=== PATIENT | female | born 1945 | race Hispanic/Latino ===

== ENCOUNTER 2017-07-23 06:03 | Day surgery (SDC) | payer OTHER ==
[2017-07-22 11:09] LABS: Absolute Lymphocytes (CBC) 1.5 K/uL (0.7-4.9); Absolute Monocytes 0.7 K/uL (0.1-1.3); Absolute Neutrophil 3.6 K/uL (1.8-8.0); Basophils % 0.6 % (0-1.3); Eosinophils % 3.2 % (0-4.4); Hematocrit 42.2 % (36.0-45.0); Lymphocytes % 24.6 % (15.3-44.8); MCH 29.5 pg (27.0-35.0); MCV 88.5 fL (80-100); MPV 9.2 fL (7.6-11.3); Monocytes % 11.3 % (3.3-12.3); RBC Red Blood Cell Count 4.77 M/uL (3.86-4.86)
[2017-07-22 11:26] LABS: Potassium 3.9 mEq/L (3.6-5.0)
[2017-07-23] MEDS ORDERED: Ringers Lactate 1,000 ML IV ONE ×2 (06:46→10:56)
[2017-07-23] MEDS ORDERED: SCOPOLAMINE HYDROBROMIDE PATCH TD ONE (06:48)
[2017-07-23] MEDS ORDERED: LIDOCAINE 2% MPF 5 ML VIAL ONE (08:16)
[2017-07-23] MEDS ORDERED: PROPOFOL 200 MG/20 ML VIAL IV ONE (08:16)
[2017-07-23] MEDS ORDERED: FENTANYL CITR 250 MCG/5 ML ONE (08:16)
[2017-07-23] MEDS ORDERED: DEXAMETHASONE 10 MG/ML VIAL ONE (08:16)
[2017-07-23] MEDS ORDERED: ROCURONIUM 50 MG/5 ML VIAL IV ONE (08:16)
[2017-07-23] MEDS ORDERED: MIDAZOLAM HCL 2 MG/2 ML INJ ONE (08:17)
[2017-07-23] MEDS ORDERED: ONDANSETRON 4 MG/2 ML VIAL ONE ×3 (08:17→15:19)
[2017-07-23] MEDS: CEFAZOLIN/SWI 1gm 1 GM/10 ML SYR ONE ×3 (08:53→09:20)
[2017-07-23] MEDS: NA CHLORIDE 0.9% 1,000 ML ONE ×3 (08:53→09:13)
[2017-07-23] MEDS ORDERED: EPHEDRINE SULF 50 MG/5 ML SYR ONE (09:42)
[2017-07-23] MEDS ORDERED: FENTANYL CITR 100 MCG/2 ML ONE (11:09)
[2017-07-23] MEDS ORDERED: KETOROLAC 30 MG/ML INJ ONE (12:02)
[2017-07-23] MEDS ORDERED: CEFAZOLIN/SWI 1gm 1 GM/10 ML SYR ONE (12:13)
[2017-07-23] MEDS ORDERED: MORPHINE 10 MG/ML VIAL ONE (12:21)
[2017-07-23] MEDS ORDERED: Mastisol Adhesive Liq ONE (12:27)
[2017-07-23] MEDS: PROMETHAZINE 25 MG/ML VIAL ONE ×2 (14:15→15:20)
[2017-07-23] MEDS ORDERED: METOCLOPRAMIDE 10 MG/2mL INJ ONE (15:34)
--- NOTE | 2017-07-27 02:43 | OP ---
Date of Procedure: 07/23/2017 Surgeon: Isa Ramsey MD Anesthesiologist: Riana Keller. Preoperative Diagnoses: Postmenopausal bleeding, left adnexal mass, recent diagnosis of breast cance r 4 months ago. Postoperative Diagnoses: Postmenopausal bleeding, left adnexal mass, recent diagnosis of breast canc er 4 months ago. Left large complex ovarian mass, left hydrosalpinx, omental implant x1 and round li gament implant x1. Frozen section on the omental lesion was negative for malignancy. Procedures Performed: 1.Total laparoscopic hysterectomy and bilateral salpingo-oophorectomy. 2.Pelvic washings. 3.Biopsies of the right round ligament and omental lesions. 4.Cystoscopy. 5.Lysis of sigmoid and omental adhesions before the start of the case. Anesthesia: General endotracheal. Estimated Blood Loss: Minimal. Complications: No complications. Drains: No drains. Condition: Stable. Findings: There were omental adhesions from below the umbilicus all the way to the level of the area above the bladder. Then there were adhesions of the omentum to the right adnexa. There were small bowel adhesions to the right lower quadrant and into the pelvic area just underneath the brim of the pelvis and there were sigmoid adhesions to the infundibulopelvic ligament, to the distal part of the tube, and to the lateral wall, inferior and medial to the lateral attachment of the colon. There was one omental lesion that appeared whitish, less than a half centimeter on the inferior part of the om entum. This was picked up and entirely resected all around and a 3-0 Vicryl suture placed to close t he window in the omentum to prevent any potential bowel obstruction. There was a lesion on the right round ligament, about 5 cm from the uterine attachment. This was also excised completely with a wid e margin. At the end of the surgery, both tubes and ovaries were completely removed including all th e paraovarian and paratubal tissues leaving a clean pedicle of the infundibulopelvic ligament alone w ithout any residual tissue. No evidence of any other endometriotic implants. Indications: The patient is a 72-year-old with postmenopausal bleeding, who had endometrial curettag e about 4 months ago which did not show any EIN or EAC, so she then had a diagnosis of breast cancer. She refused chemotherapy, was going to get radiation starting in July. Her CT scan was done for her cancer and this showed an adnexal mass that was 3.5 cm on the left side and calcified appearing lesi on, which appeared to be a fibroid that was contiguous to the uterus, likely subserosal. There was no evidence of any free fluid or lymphadenopathy or hepatic lesions. The patient was referred from the oncologist for the findings on the CT. She was counseled on her op tions. She still had ongoing bleeding in an intermittent fashion that had not stopped since I did bi opsy. So, given the fact that she had ongoing postmenopausal bleeding despite a negative endometrial sampling procedure, we discussed about the possibility of metastatic breast cancer or a second prima ry like an ovarian lesion or a small chance that this could be leiomyosarcoma. All these were discus sed with the patient and the patient was consented and then taken to the OR, discussed with radiation oncologist and the medical oncologist about timing and once this was clarified to be not interfering with any of the timings of the other treatment options, proceed with surgery. Procedure In Detail: Informed consent was verified. The patient was brought to the OR. She was topher macho in a supine fashion on the operating table. After general anesthesia was given, she was placed i n dorsal lithotomy position. Pelvic exam performed. Uterus anteflexed, difficult examination, howev er, left adnexal mass palpated, which was presumed to be a fibroid and an ovarian mass. Intact abdomen, vulva, vagina, and perineum were prepped and draped in a sterile fashion. Reddy was placed to drain the bladder and VCare was fixed in place. This area was draped. A 1-cm supraumbilic al incision was made with a scalpel about 1.5 actually on the skin. Fascia was dissected, opened up by incising with a scalpel, tagged on both sides with 0 Vicryl sutures. The peritoneum appeared into the cavity bluntly with a finger. Then S retractors placed. Scope placed. Site of entry checked. No evidence of any trauma. Liver and gallbladder inspected. No evidence of any abnormalities on th e surface. The entire peritoneum lining and diaphragm were inspected as well as the omentum. There was a tiny omental whitish lesion near the distal most part. Once this was noted, then the adhesions that were present on the anterior aspect attached to the anterior abdominal wall, were seen all the way to the level of the bladder. So, a 5-mm left lower quadrant port was placed. Then, curved tip L igaSure was used 5 mm to take down the bowel adhesions with sharp dissection with the scissors of the LigaSure and then with the bipolar cautery along with the cutting. Once this was systematically wit h push-spread technique , window was created and taken down. Then, the patient was placed i nto Trendelenburg. A 10 mm suprapubic, 5 mm right lower quadrant ports were all placed under direct vision. Then, the uterus was elevated. Thorough pelvic washings were performed. The left adnexal m ass was palpable. Uterus was small and it was not attached to the left adnexal masses. This mass ap peared to be complex. Pelvic washings were done. The plan was made to remove the omental lesion if this was positive. Then that probably meant that this would be metastatic ovarian cancer. This lesi on was excised completely while making windows in the omentum and excising it widely. Then, a 2-0 Vi cryl on an SH needle was used to close the window in a [id number] fashion. Once this was done, omental lesion was sent for frozen section. This appeared to be fibrotic connect christina tissue. No evidence of any malignant cells. She did have epithelial compartment component as well but no cancer. We came back into the OR. This could be a metastatic breast lesion or a benign calcified lesion that had been preexisting. The diagnosis of ovarian cancer was also contemplated. However, since the pa tient was there with ports placed and the adnexal mass completely free and unattached to other struct ures excepting the tubal attachment to the left sigmoid, plan was to proceed with the surgery. So, the sigmoid colon adhesions were taken down in a systematic fashion with push-spread technique ta james down the adhesions all the way from the lateral wall to the IP ligament and then to the distal p art of the tube. Window was made and the bipolar cautery was used to cut. The peritoneum on the med ial and lateral sides of the IP ligament were incised. The peritoneal dissection was carried to the round ligament on the left side. Then, the peritoneal window was made on the medial aspect as well a fter identifying the course of the ureter and the pelvis from the pelvic brim where it crossed over t he iliac vessels. Then through this window, the bipolar was inserted and the IP ligament was cauteri zed and cut on the distal part of the tube. All these were dissected medially while doing the latera l dissection and all these were taken down along the mesosalpinx to the level of the proximal end of the tube at the uterus. The tube was cauterized and cut and removed. The specimen was left and the specimen was placed into the bag through the 10 port. The utero-ovarian ligament was taken down and the entire ovary was removed along with the tube as well. Once this was placed in a bag and complete ly cinched tight, it was left in the left lower quadrant and tie was held outside through the right p ort at the skin. Port was replaced and the hysterectomy started. The round ligament was opened up, cauterized, and cut completely. Anterior bladder flap was raised from the left side over the bladder to the right side and the posterior leaf was reached through the left uterosacral ligament. Similar dissection was performed on the opposite side taking down the mesosalpinx and the entire out. This tube was cauterized and cut and removed through the 10 port. Ovary was left in place. Utero-ovarian ligament, round ligament, anterior broad ligament, and posterior broad ligament were all taken down systematically. All the vessels were cauterized and cut to skeletonize the uterine vessels. Then, a nterior bladder flap was opened up. The vesicovaginal space was entered and the bladder pushed infer iorly. Laterally, the vessels on the right side were taken down the cardinal ligament. Similar diss ection on the left side wit circumferential colpotomy with a monopolar hook blade. Specimen pulled o ut through the uterus. Right side of the ovary was still intact. This was taken down actively and c arefully dissecting this lateral to the ureter and superior. Once the entire ovary was taken down by cutting and cauterizing the IP ligament, the specimen was pulled out through the 10 port. We then p roceeded with hysterectomy. Posteriorly, the broad ligament was taken down to the right uterosacral on the superficial after the surgical colpotomy was done, the bag was pulled out through the vagina, keeping specimen completely i ntact without rupture. Then, PDS sutures were taken and the cuff closed with 2 single sutures on bot h ends and 3 [id number] in the middle. Excellent support. No evidence of any residual uterine , ovarian, or cervical tissues. The entire pelvic cavity was surveyed, thoroughly irrigated, and suc tioned with normal saline at least one liter. Then, the patient was placed in a reverse Trendelenbur g and all the fluid sucked out as well. The omentum was inspected and was normal. The sigmoid was then inspected. There was no evidence of any trauma. However, there was lot of diverticulosis. All the trocars were removed. Fascia closed at the umbilicus with a cnbugr-ae-smdln 0 Vicryl and sim ple 0 Vicryl at the suprapubic site. All skin incisions closed with the help of 4-0 Monocryl interru pted sutures. Cystoscopy was performed after removing the Reddy and a 17-Khmer sheath, 30-degree le ns and normal saline were used. Both ureteric orifices had strong jets of urine from and no evidence of any trauma. The scope was pulled out and the bladder was drained. The patient was recovered fro m anesthesia and taken to PACU in stable condition. EBL minimal. Instrument, needle, and sponge cou nts were done and they were correct at the end of the case. ROSA/ADARSH Voice ID: [id number] Report ID: [id number]
== END 2017-07-23 16:30 | disposition home or self-care (01) ==
LOC: OR 06:03
PROVIDERS: ATTEND Obstetrics & Gynecology
PROC: 0UT24ZZ Resection of Bilateral Ovaries, Percutaneous Endoscopic Approach (ICD-10-PCS; 2017-07-23)
PROC: 0UT74ZZ Resection of Bilateral Fallopian Tubes, Percutaneous Endoscopic Approach (ICD-10-PCS; 2017-07-23)
PROC: 0DBU4ZX Excision of Omentum, Percutaneous Endoscopic Approach, Diagnostic (ICD-10-PCS; 2017-07-23)
PROC: 0UT94ZZ Resection of Uterus, Percutaneous Endoscopic Approach (ICD-10-PCS; principal; 2017-07-23 08:00)
DX: N85.02 Endometrial intraepithelial neoplasia [EIN] (principal); D27.1 Benign neoplasm of left ovary; D25.9 Leiomyoma of uterus, unspecified; N70.11 Chronic salpingitis; N94.89 Other specified conditions associated with female genital organs and menstrual cycle; N83.8 Other noninflammatory disorders of ovary, fallopian tube and broad ligament; K66.0 Peritoneal adhesions (postprocedural) (postinfection); C50.912 Malignant neoplasm of unspecified site of left female breast; I10 Essential (primary) hypertension; Z82.49 Family history of ischemic heart disease and other diseases of the circulatory system; Z83.3 Family history of diabetes mellitus
CPT/HCPCS: 36415; 49321; 58571; 80048; 85025; 86850; 86900; 86901; 88108; 88305 ×3; 88307; 88331; 88333; J0690 ×2; J1100; J2250; J2405 ×2; J2550; J2765; J3010; J7030

== ENCOUNTER 2017-10-03 00:40 | Emergency (ER) | payer OTHER ==
[2017-10-03] MEDS ORDERED: MECLIZINE HCL 12.5 MG TAB ONE (01:16)
[2017-10-03] MEDS ORDERED: cloNIDine HCl 0.1 MG TAB ONE (01:16)
[2017-10-03 01:29] LABS: Absolute Lymphocytes (CBC) 0.8 K/uL (0.7-4.9); Absolute Monocytes 0.6 K/uL (0.1-1.3); Basophils % 1.1 % (0-1.3); Eosinophils % 3.7 % (0-4.4); Hematocrit 40.7 % (36.0-45.0); MCH 29.8 pg (27.0-35.0); MPV 8.6 fL (7.6-11.3); Monocytes % 10.7 % (3.3-12.3); RBC Red Blood Cell Count 4.68 M/uL (3.86-4.86)
[2017-10-03 01:36] LABS: Protime INR 0.98
[2017-10-03 01:49] LABS: Albumin 3.8 g/dL (3.4-5.0); Bilirubin Direct 0.1 mg/dL (0-0.2); Bilirubin Total 0.4 mg/dL (0.2-1.0); CKMB Creatine Kinase MB 1.2 ng/mL (0.3-3.6); Magnesium 2.1 mg/dL (1.8-2.4); Potassium 3.8 mmol/L (3.5-5.1); Protein, Total 8.3 g/dL (6.4-8.2)
--- NOTE | 2017-10-03 03:06 | ER ---
Nurse's Notes [facility] Name: Cassy Stafford Age: 72 yrs Sex: Female : 1945 Arrival Date: 10/03/2017 Time: 00:42 Bed 8 Private MD: Megan Alfonso C Diagnosis: Benign paroxysmal vertigo, bilateral Presentation: 10/03 00:57 Presenting complaint: Patient states: Reports dizziness when lying down, causes nausea tl2 and vomiting. Started tonight. Transition of care: patient was not received from another setting of care. Onset of symptoms was October 02, 2017 at 22:00. Risk Assessment: Do you want to hurt yourself or someone else? Patient reports no desire to harm self or others. Initial Sepsis Screen: Does the patient meet any 2 criteria? No. Patient's initial sepsis screen is negative. Does the patient have a suspected source of infection? No. Patient's initial sepsis screen is negative. Care prior to arrival: None. 00:57 Method Of Arrival: Ambulatory tl2 00:57 Acuity: ONEIL 3 tl2 Triage Assessment: 00:59 General: Appears in no apparent distress. uncomfortable, Behavior is calm, cooperative, tl2 appropriate for age. Pain: Denies pain. Neuro: Level of Consciousness is awake, alert, obeys commands, Oriented to person, place, time, situation, Reverberatory Furnace Operator are equal bilaterally Moves all extremities. Speech is normal, Facial symmetry appears normal, Reports dizziness, since 2200. Cardiovascular: Denies chest pain. Respiratory: Airway is patent Respiratory effort is even, unlabored, Respiratory pattern is regular, symmetrical. GI: Reports nausea, vomiting. : No signs and/or symptoms were reported regarding the genitourinary system. Derm: Skin is pink, warm \T\ dry. Musculoskeletal: No signs and/or symptoms reported regarding the musculoskeletal system. Historical: - Allergies: 00:59 No Known Allergies; tl2 - Home Meds: 01:01 anastrozole 1 mg oral tab 1 tab once daily [Active]; fluoxetine 20 mg Oral tab 1 tab bb once daily [Active]; carvedilol 6.25 mg oral tab 1 tab 2 times per day [Active]; alendronate 35 mg oral tab 1 tab once wkly [Active]; calcium vit D 1200mg/1000 IU [Active]; cranberry 4200 mg oral [Active]; - PMHx: 00:59 breast cancer; Hypertension; tl2 - PSHx: 00:59 left lumpectomy; Hysterectomy; tl2 - Immunization history:: Adult Immunizations up to date. - Social history:: Smoking status: Patient/guardian denies using tobacco. - Ebola Screening: : No symptoms or risks identified at this time. Screenin:01 Abuse screen: Denies threats or abuse. Nutritional screening: No deficits noted. tl2 Tuberculosis screening: No symptoms or risk factors identified. Fall Risk IV access (20 points). Gait- Impaired (20 pts.). Assessment: 01:01 General: see triage assessment. tl2 03:10 Reassessment: Patient and/or family updated on plan of care and expected duration. Pain tl1 level reassessed. Patient is alert, oriented x 3, equal unlabored respirations, skin warm/dry/pink. Patient denies pain at this time. Patient states feeling better. Patient states symptoms have improved. GI: Abdomen is non-distended, Bowel sounds present X 4 quads. Abd is soft and non tender X 4 quads. 03:29 Reassessment: Patient appears in no apparent distress at this time. Patient and/or tl2 family updated on plan of care and expected duration. Pain level reassessed. Patient is alert, oriented x 3, equal unlabored respirations, skin warm/dry/pink. pt verbalized understanding of discharge instruction, need for follow up and prescription usage Patient states feeling better. Vital Signs: 00:59 BP 210 / 96; Pulse 77; Resp 18; Temp 98.4(O); Pulse Ox 97% on R/A; Weight 84.82 kg; tl2 Height 5 ft. 0 in. (152.40 cm); Pain 0/10; 01:38 BP 156 / 72; Pulse 65; Resp 16; Pulse Ox 100% ; Pain 0/10; tl1 02:18 BP 156 / 72; Pulse 66; Resp 18; Pulse Ox 99% on R/A; tl2 02:23 BP 170 / 85; Pulse 65; Resp 16; Pulse Ox 97% on R/A; Pain 0/10; tl1 03:05 BP 120 / 74; Pulse 58; Resp 17; Pulse Ox 100% on R/A; Pain 0/10; tl1 00:59 Body Mass Index 36.52 (84.82 kg, 152.40 cm) tl2 ED Course: 00:42 Patient arrived in ED. am2 00:43 Megan Alfonso FNP is Private Physician. am2 00:44 Beto Elizabeth MD is Attending Physician. kdr 00:58 Triage completed. tl2 00:59 Arm band placed on right wrist. tl2 01:01 Patient has correct armband on for positive identification. Bed in low position. Call tl2 light in reach. Side rails up X2. Adult w/ patient. 01:01 Inserted saline lock: 20 gauge in right antecubital area, using aseptic technique. tl2 Blood collected. placed by EDGARD Motley. 01:23 X-ray completed. Portable x-ray completed in exam room. Patient tolerated procedure jw2 well. 01:23 XRAY Chest (1 view) In Process Unspecified. EDMS 01:[address] via stretcher. kw1 02:08 CT Head Brain wo Cont In Process Unspecified. EDMS 02:08 CT completed. Patient tolerated procedure well. Patient moved back from CT. kw1 03:09 Tiesha Simons, RN is Primary Nurse. tl1 03:29 No provider procedures requiring assistance completed. IV discontinued, intact, tl2 bleeding controlled, No redness/swelling at site. Pressure dressing applied. Administered Medications: 01:18 Drug: Meclizine 25 mg Route: PO; tl1 03:11 Follow up: Response: No adverse reaction; Marked relief of symptoms tl1 01:18 Drug: cloNIDine 0.2 mg Route: PO; tl1 03:11 Follow up: Response: No adverse reaction; Marked relief of symptoms; Blood pressure is tl1 lowered Outcome: 03:06 Discharge ordered by . kdr 03:29 Discharged to home via wheelchair, with family. tl2 03:29 Condition: stable 03:29 Discharge instructions given to patient, family, Instructed on discharge instructions, follow up and referral plans. medication usage, Demonstrated understanding of instructions, follow-up care, medications, Prescriptions given X 1. 03:32 Patient left the ED. tl2 Signatures: Dispatcher [employer] EDMS Beto Elizabeth MD MD kdr Yamilka Jara RN RN bb Tiesha Simons RN RN tl1 Batsheva Leon jw2 Ana Dodd RN RN tl2 Daylin Solorzano am2 Rebecca Mary kw1
--- NOTE | 2017-10-03 03:06 | EDPHYS ---
Physician Documentation [facility] Name: Cassy Stafford Age: 72 yrs Sex: Female : 1945 Arrival Date: 10/03/2017 Time: 00:42 Bed 8 Private MD: Megan Alfonso C ED Physician Beto Elizabeth HPI: 10/03 01:44 This 72 yrs old Female presents to ER via Ambulatory with complaints of kdr Nausea, Dizziness. 01:45 The patient presents with dizziness, generalized weakness, feeling off balance, sense kdr of spinning, vertigo. Onset: The symptoms/episode began/occurred acutely, suddenly, just prior to arrival. Context: occurred at home, occurred while the patient was lying down, Just before her head hit the pillow. just prior to the episode the patient experienced no apparent symptoms. Modifying factors: The symptoms are alleviated by closing eyes, holding head still, the symptoms are aggravated by movement of head, standing up, changing position. Associated signs and symptoms: Pertinent positives: nausea, vomiting, Pertinent negatives: ataxia, blurred vision, combativeness, confusion, diaphoresis, focal weakness, head injury, headache, numbness, palpitations, . Severity of symptoms: At their worst the symptoms were moderate severe just prior to arrival, incapacitating in the emergency department the symptoms have improved markedly. Patient's baseline: Neuro: alert and fully oriented, Motor: no deficits, Ambulation: walks without assistance, Speech: normal. The patient has not experienced similar symptoms in the past. The patient has not recently seen a physician. The patient just completed radiation for left breast CA. Historical: - Allergies: 00:59 No Known Allergies; tl2 - Home Meds: 01:01 anastrozole 1 mg oral tab 1 tab once daily [Active]; fluoxetine 20 mg Oral tab 1 tab bb once daily [Active]; carvedilol 6.25 mg oral tab 1 tab 2 times per day [Active]; alendronate 35 mg oral tab 1 tab once wkly [Active]; calcium vit D 1200mg/1000 IU [Active]; cranberry 4200 mg oral [Active]; - PMHx: 00:59 breast cancer; Hypertension; tl2 - PSHx: 00:59 left lumpectomy; Hysterectomy; tl2 - Immunization history:: Adult Immunizations up to date. - Social history:: Smoking status: Patient/guardian denies using tobacco. - Ebola Screening: : No symptoms or risks identified at this time. ROS: 01:45 Constitutional: Negative for fever, chills, and weight loss, Eyes: Negative for injury, kdr pain, redness, and discharge, ENT: Negative for injury, pain, and discharge, Neck: Negative for injury, pain, and swelling, Cardiovascular: Negative for chest pain, palpitations, and edema, Respiratory: Negative for shortness of breath, cough, wheezing, and pleuritic chest pain, Abdomen/GI: Negative for abdominal pain, nausea, vomiting, diarrhea, and constipation, Back: Negative for injury and pain, : Negative for injury, bleeding, discharge, and swelling, MS/Extremity: Negative for injury and deformity, Skin: Negative for injury, rash, and discoloration, Psych: Negative for depression, anxiety, suicide ideation, homicidal ideation, and hallucinations, Allergy/Immunology: Negative for hives, rash, and allergies, Endocrine: Negative for neck swelling, polydipsia, polyuria, polyphagia, and marked weight changes, Hematologic/Lymphatic: Negative for swollen nodes, abnormal bleeding, and unusual bruising. 01:45 Neuro: Positive for dizziness, weakness, Negative for altered mental status, headache, hearing loss, loss of consciousness, numbness, seizure activity, speech changes, syncope, near syncope, tingling, tinnitus, tremor, visual changes. Exam: 01:45 Constitutional: This is a well developed, well nourished patient who is awake, alert, kdr and in no acute distress. Head/Face: Normocephalic, atraumatic. Eyes: Pupils equal round and reactive to light, extra-ocular motions intact. Lids and lashes normal. Conjunctiva and sclera are non-icteric and not injected. Cornea within normal limits. Periorbital areas with no swelling, redness, or edema. Neck: Trachea midline, no thyromegaly or masses palpated, and no cervical lymphadenopathy. Supple, full range of motion without nuchal rigidity, or vertebral point tenderness. No Meningismus. Chest/axilla: Normal chest wall appearance and motion. Nontender with no deformity. No lesions are appreciated. Cardiovascular: Regular rate and rhythm with a normal S1 and S2. No gallops, murmurs, or rubs. Normal PMI, no JVD. No pulse deficits. Respiratory: Lungs have equal breath sounds bilaterally, clear to auscultation and percussion. No rales, rhonchi or wheezes noted. No increased work of breathing, no retractions or nasal flaring. Abdomen/GI: Soft, non-tender, with normal bowel sounds. No distension or tympany. No guarding or rebound. No evidence of tenderness throughout. Back: No spinal tenderness. No costovertebral tenderness. Full range of motion. Skin: Warm, dry with normal turgor. Normal color with no rashes, no lesions, and no evidence of cellulitis. MS/ Extremity: Pulses equal, no cyanosis. Neurovascular intact. Full, normal range of motion. Neuro: Awake and alert, GCS 15, oriented to person, place, time, and situation. Cranial nerves II-XII grossly intact. Motor strength 5/5 in all extremities. Sensory grossly intact. Cerebellar exam normal. Normal gait. Psych: Awake, alert, with orientation to person, place and time. Behavior, mood, and affect are within normal limits. Vital Signs: 00:59 BP 210 / 96; Pulse 77; Resp 18; Temp 98.4(O); Pulse Ox 97% on R/A; Weight 84.82 kg; tl2 Height 5 ft. 0 in. (152.40 cm); Pain 0/10; 01:38 BP 156 / 72; Pulse 65; Resp 16; Pulse Ox 100% ; Pain 0/10; tl1 02:18 BP 156 / 72; Pulse 66; Resp 18; Pulse Ox 99% on R/A; tl2 02:23 BP 170 / 85; Pulse 65; Resp 16; Pulse Ox 97% on R/A; Pain 0/10; tl1 03:05 BP 120 / 74; Pulse 58; Resp 17; Pulse Ox 100% on R/A; Pain 0/10; tl1 00:59 Body Mass Index 36.52 (84.82 kg, 152.40 cm) tl2 MDM: 03:06 Patient medically screened. kdr 03:07 Data reviewed: vital signs, nurses notes, lab test result(s), radiologic studies. kdr Counseling: I had a detailed discussion with the patient and/or guardian regarding: the historical points, exam findings, and any diagnostic results supporting the discharge/admit diagnosis, lab results, radiology results, the need for outpatient follow up. Special discussion: I discussed with the patient/guardian in detail that at this point there is no indication for admission to the hospital. It is understood, however, that if the symptoms persist or worsen the patient needs to return immediately for re-evaluation. ED course: The patient has been stable with no further problems or concerns. 10/03 01:10 Order name: Basic Metabolic Panel [facility] 10/03 01:10 Order name: CBC with Diff [facility] 10/03 01:10 Order name: Ckmb kdr 10/03 01:10 Order name: CPK kdr 10/03 01:10 Order name: LFT's kdr 10/03 01:10 Order name: Magnesium kdr 10/03 01:10 Order name: NT PRO-BNP [facility] 10/03 01:10 Order name: PT-INR; Complete Time: 01:55 kdr 10/03 01:10 Order name: Ptt, Activated; Complete Time: :55 kdr 10/03 01:10 Order name: Troponin (emerg Dept Use Only); Complete Time: : kdr 10/03 01:11 Order name: Basic Metabolic Panel; Complete Time: 01:55 EDMS 10/03 01:11 Order name: CBC with Automated Diff; Complete Time: 01:55 EDMS 10/03 01:11 Order name: CKMB Creatine Kinase MB; Complete Time: :55 EDMS 10/03 01:11 Order name: Creatine Phosphokinase; Complete Time: :55 EDMS 10/03 01:10 Order name: XRAY Chest (1 view) [facility] 10/03 01:10 Order name: EKG; Complete Time: 01: kdr 10/03 01:10 Order name: Cardiac monitoring; Complete Time: : kdr 10/03 01:10 Order name: EKG - Nurse/Tech; Complete Time: : kdr 10/03 01:10 Order name: IV Saline Lock; Complete Time: : kdr 10/03 01:10 Order name: Labs collected and sent; Complete Time: : kdr 10/03 01:10 Order name: O2 Per Protocol; Complete Time: : kdr 10/03 01:10 Order name: O2 Sat Monitoring; Complete Time: : kdr 10/03 01:10 Order name: CT Head Brain wo Cont kdr 10/03 01:11 Order name: Liver (Hepatic) Function; Complete Time: 01:55 EDMS 10/03 01:11 Order name: Magnesium; Complete Time: 01:55 EDMS 10/03 01:11 Order name: NT PRO-BNP; Complete Time: :55 EDMS EC:57 Rate is 66 beats/min. Rhythm is regular. QRS [place] is Normal. HI interval is normal. QRS kdr interval is normal. QT interval is normal. No Q waves. T waves are Normal. No ST changes noted. Clinical impression: Normal ECG. Administered Medications: 01:18 Drug: Meclizine 25 mg Route: PO; tl1 03:11 Follow up: Response: No adverse reaction; Marked relief of symptoms tl1 01:18 Drug: cloNIDine 0.2 mg Route: PO; tl1 03:11 Follow up: Response: No adverse reaction; Marked relief of symptoms; Blood pressure is tl1 lowered Disposition: 10/03/17 03:06 Discharged to Home. Impression: Benign paroxysmal vertigo, bilateral. - Condition is Stable. - Discharge Instructions: Dizziness, Vertigo, Maln-ni-Iurq. - Prescriptions for Meclizine 25 mg Oral Tablet - take 1 tablet by ORAL route every 8 hours As needed; 15 tablet. - Medication Reconciliation Form, Thank You Letter form. - Follow up: Private Physician; When: 2 - 3 days; Reason: If symptoms return, Further diagnostic work-up, Recheck today's complaints, Continuance of care, Re-evaluation by your physician. - Problem is new. - Symptoms have improved. Signatures: Dispatcher [employer] [facility] Beto Elizabeth MD MD kdr Yamilka Jara RN RN Tiesha Dash RN RN tl1 Ana Dodd RN RN tl2 Corrections: (The following items were deleted from the chart) 03:32 03:06 10/03/2017 03:06 Discharged to Home. Impression: Benign paroxysmal vertigo, tl2 bilateral. Condition is Stable. Forms are Medication Reconciliation Form, Thank You Letter, Antibiotic Education, Prescription Opioid Use. Follow up: Private Physician; When: 2 - 3 days; Reason: If symptoms return, Further diagnostic work-up, Recheck today's complaints, Continuance of care, Re-evaluation by your physician. Problem is new. Symptoms have improved. kdr
--- NOTE | 2017-10-03 07:11 | EKG ---
Test Date: 2017-10-03 Test Time: 01:17:31 Quantometer Operator: KRISH MEASUREMENT RESULTS: Intervals: Rate: 66 NE: 136 QRSD: 84 QT: 428 QTc: 448 [place]: P: 40 NE: 136 QRS: 38 T: 64 INTERPRETIVE STATEMENTS: Normal sinus rhythm Normal ECG Compared to ECG 03/04/2017 13:45:51 No significant changes Electronically Signed On 10-03-17 07:11:13 CDT by Matt Edwards
--- NOTE | 2017-10-03 08:51 | RAD REPORT ---
EXAM DESCRIPTION: Joel Single View10/03/2017 8:46 am CLINICAL HISTORY: Chest pain COMPARISON: August 1999 FINDINGS: The lungs appear clear of acute infiltrate. The heart is borderline enlarged. Aorta is to rtuous/ectatic IMPRESSION: No acute abnormalities displayed
--- NOTE | 2017-10-03 08:54 | RAD REPORT ---
EXAM DESCRIPTION: CT - Head Brain Wo Cont - 10/03/2017 6:12 am CLINICAL HISTORY: Dizziness COMPARISON: None TECHNIQUE: Computed axial tomography of the head was obtained. IV contrast was not requested.A preli minary report was generated by [employer] and reviewed prior to this dictation All CT scans are performed using dose optimization technique as appropriate and may include automated exposure control or mA/KV adjustment according to patient size. FINDINGS: An intracranial bleed is not seen . The ventricles are normal in caliber. No extra-axial fluid collection is noted. Mild to moderate low-density areas within periventricular, deep and subcortical white matter likely r epresent ischemic changes secondary to small vessel disease. A small low-density area within the righ t basal ganglia is nonspecific but may represent an old lacunar infarct. Fluid within the sinuses/ mastoids is not seen. IMPRESSION: No acute intracranial abnormality is seen. If patient's symptoms persist MRI of the bra in would be recommended.
== END 2017-10-03 03:32 | disposition home or self-care (01) ==
LOC: ER 00:40
DX: H81.13 Benign paroxysmal vertigo, bilateral (principal); I10 Essential (primary) hypertension; Z85.3 Personal history of malignant neoplasm of breast
CPT/HCPCS: 36415; 70450; 71045; 80048; 80076; 82550; 82553; 83735; 83880; 84484; 85025; 85610; 85730; 93005; 99284

== ENCOUNTER 2019-01-04 23:50 | Emergency (ER) | payer OTHER ==
[~2019-01-04 23:50] MED LIST: NA CHLORIDE 0.9% 1,000 ML ONE; RSI MEDICATION KIT IV ONE
[2019-01-04] MEDS ORDERED: ROCURONIUM 50 MG/5 ML VIAL IV ONE (23:53)
[2019-01-04] MEDS ORDERED: ETOMIDATE 20 MG/10 ML VIAL IV ONE (23:53)
[2019-01-04] MEDS ORDERED: Mastisol Adhesive Liq ONE (23:55)
--- NOTE | 2019-01-05 02:05 | ER ---
Nurse's Notes [facility] Name: Cassy Stafford Age: 73 yrs Sex: Female : 1945 Arrival Date: 01/04/2019 Time: 23:52 Bed 17 Private MD: Diagnosis: Fall on same level from slipping, tripping and stumbling;Superficial injury of head;Displaced fracture of base of fourth metacarpal bone, right hand;Contusion of right knee Presentation: 01/05 00:07 Presenting complaint: Patient states: fell approx 2330 while taking out the trash. bb tripped when turning, hit forehead, R hand, R breast, and R knee. Care prior to arrival: None. Mechanism of Injury: Fall from standing position. Trauma event details: Injury occurred in the [facility], Injury occurred: at home. Injury occurred: January 04, 2019 Injury occurred at: 23:30. 00:07 Acuity: ONEIL 4 bb 00:07 Method Of Arrival: Ambulatory bb 00:12 Onset of symptoms was January 04, 2019. Risk Assessment: Do you want to hurt yourself bb or someone else? Patient reports no desire to harm self or others. Initial Sepsis Screen: Does the patient meet any 2 criteria? No. Patient's initial sepsis screen is negative. Does the patient have a suspected source of infection? No. Patient's initial sepsis screen is negative. 00:16 Transition of care: patient was not received from another setting of care. bb Triage Assessment: 00:17 General: Appears in no apparent distress. comfortable. bb Trauma Activation: Physician: ED Physician; Name: ; Notified At: ; Arrived At: Physician: General Surgeon; Name: ; Notified At: ; Arrived At: Physician: Radiology; Name: ; Notified At: ; Arrived At: Physician: Respiratory; Name: ; Notified At: ; Arrived At: Physician: Lab; Name: ; Notified At: ; Arrived At: Trauma Activation: Not Applicable Physician: ED Physician; Name: ; Notified At: ; Arrived At: Physician: General Surgeon; Name: ; Notified At: ; Arrived At: Physician: Radiology; Name: ; Notified At: ; Arrived At: Physician: Respiratory; Name: ; Notified At: ; Arrived At: Physician: Lab; Name: ; Notified At: ; Arrived At: 01/04 23:58 N/A cc3 Historical: - Allergies: 01/05 00:17 No Known Allergies; bb - Home Meds: 00:21 Metformin Oral [Active]; carvedilol oral oral [Active]; letrozole 2.5 mg oral tab 1 tab bb once daily [Active]; paroxetine oral oral [Active]; losartan oral oral [Active]; - PMHx: 00:17 breast cancer; Hypertension; Diabetes - NIDDM; bb - PSHx: 00:17 left lumpectomy; Hysterectomy; bb - Immunization history: Last tetanus immunization: - up to date. < 5 years ago. - Social history:: Smoking status: Patient/guardian denies using tobacco, Patient/guardian denies using alcohol, street drugs. - Ebola Screening: : Patient negative for fever greater than or equal to 101.5 degrees Fahrenheit, and additional compatible Ebola Virus Disease symptoms Patient denies exposure to infectious person Patient denies travel to an Ebola-affected area in the 21 days before illness onset No symptoms or risks identified at this time. Screenin/08 23:58 Nutritional screening: No deficits noted. Fall Risk Ambulatory Aid- None/Bed Rest/Nurse cc3 Assist (0 pts). Gait- Weak (10 pts.). Mental Status- Oriented to own ability (0 pts). 01/05 00:12 Abuse screen: Denies threats or abuse. Denies injuries from another. Tuberculosis bb screening: No symptoms or risk factors identified. Primary Survey: 00:12 NO uncontrolled hemorrhage observed. A: The patient is alert. Airway: patent. bb Breathing/Chest: Respiratory pattern: regular, Respiratory effort: spontaneous, unlabored, Breath sounds: clear, bilaterally. Chest inspection: symmetrical rise and fall of the chest. Circulation: Cardiac rhythm:. Disability Alert. Exposure/Environment: All clothing and personal items were removed. Forensic evidence collection is not deemed to be indicated at this time. Items placed in patient belonging bag. There is no evidence of uncontrolled external bleeding. Obvious injury(ies) are noted at this time: abrasions to forehead, swelling to back of R hand, abrasion to R knee. 00:15 Reassessment Airway Airway Patent Oxygen No O2 Trachea Midline Breathing/Chest cc3 Respiratory pattern Regular Respiratory effort Spontaneous Unlabored Breath sounds Clear Other bilaterally Chest inspection Symmetrical Circulation Heart tones Present Disability Alert. Secondary Survey: 00:15 HEENT: Head Other abrasion to forehead Face No injury/deformity Eyes: No injury or cc3 deformity noted. to bilateral eyes. Ears: clear bilaterally. Nose: clear to bilateral nares. Throat: with gag reflex present. Gastrointestinal: Abdomen is soft, obese, Bowel sounds present in all quadrants. : No signs and/or symptoms were reported regarding the genitourinary system. Musculoskeletal: Swelling present in right hand and right knee. Injury Description: fall from standing. Assessment: 01/04 23:58 General: Appears in no apparent distress. comfortable, Behavior is calm, cooperative, cc3 appropriate for age. Pain: Complains of pain in right side of forehead and right hand and right knee and right nipple Quality of pain is described as aching. Neuro: Level of Consciousness is awake, alert, obeys commands, Oriented to person, place, time, situation, Appropriate for age Flatwork Finisher are equal bilaterally Moves all extremities. Speech is normal, Facial symmetry appears normal, Pupils are PERRLA, Intact. Cardiovascular: Denies chest pain, Heart tones S1 S2 present Capillary refill < 3 seconds in bilateral fingers Patient's skin is warm and dry. Respiratory: Airway is patent Respiratory effort is even, unlabored, Respiratory pattern is regular, symmetrical, Breath sounds are clear bilaterally. GI: Abdomen is round obese. : No signs and/or symptoms were reported regarding the genitourinary system. EENT: No signs and/or symptoms were reported regarding the EENT system. Derm: Skin is intact, is healthy with good turgor, Skin is pink, warm \T\ dry. normal. Musculoskeletal: Circulation, motion, and sensation intact. Range of motion: intact in all extremities, Swelling present in right hand and right knee. Injury Description: Abrasion sustained to right side of forehead. 01/05 00:12 General: Appears in no apparent distress. comfortable, Behavior is calm, cooperative, bb appropriate for age. Pain: Complains of pain in forehead, right advent, right nipple, right hand and right knee. 01:35 Reassessment: Patient appears in no apparent distress at this time. Patient and/or cc3 family updated on plan of care and expected duration. Pain level reassessed. Patient is alert, oriented x 3, equal unlabored respirations, skin warm/dry/pink. store facility technician Chichi did the ulnar gutter splint and checked by JOHN Santamaria. 02:30 Reassessment: Patient appears in no apparent distress at this time. Patient and/or cc3 family updated on plan of care and expected duration. Pain level reassessed. Patient is alert, oriented x 3, equal unlabored respirations, skin warm/dry/pink. Cleaned the forehead abrasion. JOHN Santamaria discharged the patient home with prescription given. No IV cannula in situ. Patient left ER vitally stable by wheelchair escorted by me. No valuables left in the patient's room. Patient denies pain at this time. Patient states feeling better. Patient states symptoms have improved. Vital Signs: 00:19 BP 157 / 89; Pulse 72; Resp 18; Temp 98.3; Pulse Ox 99% on R/A; Weight 83.91 kg; Height bb 5 ft. (152.40 cm); Pain 5/10; 01:46 BP 154 / 59; Pulse 65; Resp 18 S; Pulse Ox 97% on R/A; cc3 02:18 BP 149 / 57; Pulse 67; Resp 17 S; Pulse Ox 98% on R/A; Pain 3/10; cc3 00:19 Body Mass Index 36.13 (83.91 kg, 152.40 cm) bb Chace Coma Score: 00:12 Eye Response: spontaneous(4). Verbal Response: oriented(5). Motor Response: obeys bb commands(6). Total: 15. Trauma Score (Adult): 01/04 23:58 Eye Response: spontaneous(1); Verbal Response: oriented(1); Motor Response: obeys cc3 commands(2); Systolic BP: > 89 mm Hg(4); Respiratory Rate: 10 to 29 per min(4); [place] Score: 15; Trauma Score: 12 ED Course: 23:52 Patient arrived in ED. cl3 23:57 Billie Santaamria FNP-C [facility]. kb 23:57 David Hernandez MD is Attending Physician. kb 23:58 Shauna Mcintyre is Primary Nurse. cc3 23:58 Thermoregulation: warm blanket given to patient. cc3 01/05 00:11 Triage completed. bb 00:12 Patient has correct armband on for positive identification. Placed in gown. Bed in low bb position. Call light in reach. Side rails up X 1. Adult w/ patient. 00:12 Patient maintains SpO2 saturation greater than 95% on room air. bb 00:17 Arm band placed on left wrist. Patient placed in an exam room, on a stretcher, on pulse bb oximetry. 01:00 CT Head Brain wo Cont In Process Unspecified. EDMS 01:25 Hand Right 3 View XRAY In Process Unspecified. EDMS 01:25 Knee Right 3 View XRAY In Process Unspecified. EDMS 02:30 No provider procedures requiring assistance completed. Patient did not have IV access cc3 during this emergency room visit. Administered Medications: No medications were administered Intake: 00:12 PO: 0ml; Total: 0ml. bb Outcome: 02:04 Discharge ordered by . kane 02:30 Discharged to home via wheelchair, with family. cc3 02:30 Condition: stable 02:30 Discharge instructions given to patient, Instructed on discharge instructions, follow up and referral plans. medication usage, Demonstrated understanding of instructions, follow-up care, medications, Prescriptions given X 1. 02:30 Patient's length of stay in the Emergency Department was greater than 2 hours. waited cc3 for diagnostic exam resultPatient's length of stay extended due to 02:40 Patient left the ED. cc3 Signatures: Dispatcher [employer] EDMS Billie Santamaria, LEAD RAMP AGENT-C LEAD RAMP AGENT-Yamilka Patterson, EDGARD RN Shauna Barksdale cc3 Jose Franks cl3 Corrections: (The following items were deleted from the chart) 00:16 00:12 Trauma Activation: Alert misty jay
--- NOTE | 2019-01-05 02:06 | EDPHYS ---
Physician Documentation [facility] Name: Cassy Stafford Age: 73 yrs Sex: Female : 1945 Arrival Date: 01/04/2019 Time: 23:52 Bed 17 Private MD: ED Physician David Hernandez HPI: 01/05 00:13 This 73 yrs old Female presents to ER via Ambulatory with complaints of Fall kb Injury. 00:13 Details of fall: The patient fell from an upright position, while walking. Onset: The kb symptoms/episode began/occurred just prior to arrival. Associated injuries: The patient sustained injury to the head, abrasion, right knee, abrasion, right hand, swelling. Severity of symptoms: At their worst the symptoms were moderate, in the emergency department the symptoms are unchanged. The patient has not experienced similar symptoms in the past. The patient has not recently seen a physician. Pt reports she was taking the trash out, spun around and tripped falling onto right side. Reports abrasions to forehead and right knee, as well as swelling to right hand. Historical: - Allergies: 00:17 No Known Allergies; bb - Home Meds: 00:21 Metformin Oral [Active]; carvedilol oral oral [Active]; letrozole 2.5 mg oral tab 1 tab bb once daily [Active]; paroxetine oral oral [Active]; losartan oral oral [Active]; - PMHx: 00:17 breast cancer; Hypertension; Diabetes - NIDDM; bb - PSHx: 00:17 left lumpectomy; Hysterectomy; bb - Immunization history: Last tetanus immunization: - up to date. < 5 years ago. - Social history:: Smoking status: Patient/guardian denies using tobacco, Patient/guardian denies using alcohol, street drugs. - Ebola Screening: : Patient negative for fever greater than or equal to 101.5 degrees Fahrenheit, and additional compatible Ebola Virus Disease symptoms Patient denies exposure to infectious person Patient denies travel to an Ebola-affected area in the 21 days before illness onset No symptoms or risks identified at this time. ROS: 00:23 Constitutional: Negative for fever, chills, and weight loss, Eyes: Negative for injury, kb pain, redness, and discharge, ENT: Negative for injury, pain, and discharge, Neck: Negative for injury, pain, and swelling, Cardiovascular: Negative for chest pain, palpitations, and edema, Respiratory: Negative for shortness of breath, cough, wheezing, and pleuritic chest pain, Abdomen/GI: Negative for abdominal pain, nausea, vomiting, diarrhea, and constipation, Back: Negative for injury and pain, Neuro: Negative for headache, weakness, numbness, tingling, and seizure. 00:23 MS/extremity: Positive for abrasion, swelling. Exam: 00:23 Constitutional: This is a well developed, well nourished patient who is awake, alert, kb and in no acute distress. ENT: Nares patent. No nasal discharge, no septal abnormalities noted. Tympanic membranes are normal and external auditory canals are clear. Oropharynx with no redness, swelling, or masses, exudates, or evidence of obstruction, uvula midline. Mucous membranes moist. Neck: Trachea midline, no thyromegaly or masses palpated, and no cervical lymphadenopathy. Supple, full range of motion without nuchal rigidity, or vertebral point tenderness. No Meningismus. Chest/axilla: Normal chest wall appearance and motion. Nontender with no deformity. No lesions are appreciated. Cardiovascular: Regular rate and rhythm with a normal S1 and S2. No gallops, murmurs, or rubs. Normal PMI, no JVD. No pulse deficits. Respiratory: Lungs have equal breath sounds bilaterally, clear to auscultation and percussion. No rales, rhonchi or wheezes noted. No increased work of breathing, no retractions or nasal flaring. Abdomen/GI: Soft, non-tender, with normal bowel sounds. No distension or tympany. No guarding or rebound. No evidence of tenderness throughout. 00:23 Head/face: Noted is no obvious of injury or deformity except abrasion(s), that are mild, of the right side of forehead. 00:23 Musculoskeletal/extremity: Extremities: grossly normal except: noted in the right knee: abrasion, noted in the right hand: swelling. Vital Signs: 00:19 BP 157 / 89; Pulse 72; Resp 18; Temp 98.3; Pulse Ox 99% on R/A; Weight 83.91 kg; Height bb 5 ft. (152.40 cm); Pain 5/10; 01:46 BP 154 / 59; Pulse 65; Resp 18 S; Pulse Ox 97% on R/A; cc3 02:18 BP 149 / 57; Pulse 67; Resp 17 S; Pulse Ox 98% on R/A; Pain 3/10; cc3 00:19 Body Mass Index 36.13 (83.91 kg, 152.40 cm) bb [place] Coma Score: 00:12 Eye Response: spontaneous(4). Verbal Response: oriented(5). Motor Response: obeys bb commands(6). Total: 15. Trauma Score (Adult): 01/04 23:58 Eye Response: spontaneous(1); Verbal Response: oriented(1); Motor Response: obeys cc3 commands(2); Systolic BP: > 89 mm Hg(4); Respiratory Rate: 10 to 29 per min(4); [place] Score: 15; Trauma Score: 12 Procedures: 01/05 02:03 Splinting: Splint applied to right arm using Orthoglass splint, applied by tech. kb Examined by me, post splint application: neurovascular intact, 2+ distal pulses palpable, brisk capillary refill noted, Patient tolerated well. MDM: 01/04 23:58 Patient medically screened. kb 01/05 00:12 Data reviewed: vital signs, nurses notes. Data interpreted: Pulse oximetry: on room air kb is 100 %. Interpretation: normal. 01:00 Test interpretation: by ED physician or midlevel provider: plain radiologic studies, kb displaced fracture of forth metacarpal on right hand. 02:03 Counseling: I had a detailed discussion with the patient and/or guardian regarding: the kb historical points, exam findings, and any diagnostic results supporting the discharge/admit diagnosis, lab results, radiology results, the need for outpatient follow up, a family practitioner, to return to the emergency department if symptoms worsen or persist or if there are any questions or concerns that arise at home. 01/05 00:01 Order name: CT Head Brain wo Cont kb 01/05 00:01 Order name: Hand Right 3 View XRAY kb 01/05 00:01 Order name: Knee Right 3 View XRAY kb 01/05 01:00 Order name: Ulnar Gutter splint; Complete Time: 01:37 kb 01/05 01:00 Order name: Sling; Complete Time: 01:37 kb Administered Medications: No medications were administered Disposition: 07:03 Co-signature as Attending Physician, David Hernandez MD Available for consultation at ps1 all times . Disposition: 01/05/19 02:04 Discharged to Home. Impression: Fall on same level from slipping, tripping and stumbling, Superficial injury of head, Displaced fracture of base of fourth metacarpal bone, right hand, Contusion of right knee. - Condition is Stable. - Discharge Instructions: Contusion, Wnsy-hw-Ciuh, Metacarpal Fracture, Lsfi-dm-Eyua, Head Injury, Adult, Cpdb-kh-Ivvv, Knee Pain, Xlzh-ss-Vpgy. - Prescriptions for Tramadol 50 mg Oral Tablet - take 1 tablet by ORAL route every 8 hours as needed; 12 tablet. - Medication Reconciliation Form, Thank You Letter, Antibiotic Education, Prescription Opioid Use form. - Follow up: Emergency Department; When: As needed; Reason: Worsening of condition. Follow up: Private Physician; When: 2 - 3 days; Reason: Recheck today's complaints, Continuance of care, Re-evaluation by your physician. Signatures: Dispatcher [employer] EDMS Billie Santamaria, BARKER PEELER-C BARKER PEELER-Yamilka Patterson, RN RN David Copeland MD MD [facility] Shauna Mcintyre cc3 Corrections: (The following items were deleted from the chart) 01:01 01:00 Test interpretation: by ED physician or midlevel provider: plain radiologic kb studies, displaced fracture of forth metatarsal on right hand, kb 02:40 02:04 01/05/2019 02:04 Discharged to Home. Impression: Fall on same level from cc3 slipping, tripping and stumbling; Superficial injury of head; Displaced fracture of base of fourth metacarpal bone, right hand; Contusion of right knee. Condition is Stable. Forms are Medication Reconciliation Form, Thank You Letter, Antibiotic Education, Prescription Opioid Use. Follow up: Emergency Department; When: As needed; Reason: Worsening of condition. Follow up: Private Physician; When: 2 - 3 days; Reason: Recheck today's complaints, Continuance of care, Re-evaluation by your physician. kb
[2019-01-05 02:46] VITALS: TEMP 98.3
[2019-01-05 02:47] VITALS: BP 154/59; O2SAT 97
--- NOTE | 2019-01-05 06:39 | RAD REPORT ---
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 A small suprapatellar joint effusion is noted. A fracture is not clearly evident. If pain persists or progresses, consider CT or MR imagin g followup.
--- NOTE | 2019-01-05 06:40 | RAD REPORT ---
EXAM DESCRIPTION: RAD - Hand Right 3 View - 01/05/2019 1:25 am CLINICAL HISTORY: PAIN COMPARISON: No comparisons FINDINGS: Mildly displaced oblique fracture involves the base of the fourth metacarpal. Nondisplaced fracture also suspected involving the base of the fifth metacarpal. Mild adjacent soft tissue swelli ng.
--- NOTE | 2019-01-05 11:29 | RAD REPORT ---
EXAM DESCRIPTION: CT HEAD WITHOUT IV CONTRAST CLINICAL HISTORY: Trauma. COMPARISON: None. TECHNIQUE: CT scan of the brain without IV contrast. This exam was performed according to our depa rtmental dose-optimization program, which includes automated exposure control, adjustment of the mA a nd/or kV according to patient size and/or use of iterative reconstruction technique. FINDINGS: There are scattered areas of hypoattenuation within the periventricular white matter, whic h likely represent chronic microvascular ischemia. No evidence of acute infarction, intracranial hemo rrhage, extra-axial fluid collection, or midline shift. No air-fluid levels are seen in the paranasal sinuses to suggest acute sinusitis. No depressed skull fracture. There is right frontal scalp swelli ng. IMPRESSION: No acute intracranial findings. Electronically signed by: Conner Valadez MD 01/05/2019 1:28 AM CDT Due to temporary technical issues with the PACS/Fluency reporting system, reports are being signed by the in house radiologist as a courtesy to ensure prompt reporting. The interpreting radiologist is f ully responsible for the content of the report.
== END 2019-01-05 02:40 | disposition home or self-care (01) ==
LOC: ER 23:50
PROC: 2W3CX1Z Immobilization of Right Lower Arm using Splint (ICD-10-PCS; principal; 2019-01-05)
DX: S00.90XA Unspecified superficial injury of unspecified part of head, initial encounter (principal); S62.314A Displaced fracture of base of fourth metacarpal bone, right hand, initial encounter for closed fracture; S80.01XA Contusion of right knee, initial encounter; W01.0XXA Fall on same level from slipping, tripping and stumbling without subsequent striking against object, initial encounter; Y93.89 Activity, other specified; Y92.9 Unspecified place or not applicable
CPT/HCPCS: 70450; 73130; 73562; 99284; 29125; J7030

== ENCOUNTER 2019-03-25 14:03 | Emergency (ER) | payer OTHER ==
--- OUTSIDE RECORDS SUMMARY | 2019-03-25 14:06 | XMS REPORT ---
:1945 Author Organization e[employer] Care Team Providers Name Role Phone Sofy Schwartz Provider Role Unavailable Allergies No Known Allergies Problems Problem Type Condition Code Onset Dates Condition Status Problem Hypercholesterolemia E78.00 Active Problem Peripheral edema R60.9 Active Problem Hyperglycemia R73.9 Active Problem Acute pain of right knee M25.561 Active Problem Status post fall Z91.81 Active Problem Swelling of right knee joint M25.461 Active Problem Adverse effect of T46.4X5A Active mjcqmehlvvi-fyzwqvmjcz-oqyzvk inhibitors, initial encounter Problem Cough R05 Active Problem Closed nondisplaced fracture of S62.304S Active fourth metacarpal bone of right hand, unspecified portion of metacarpal, sequela Problem Closed nondisplaced fracture of S62.306S Active fifth metacarpal bone of right hand, unspecified portion of metacarpal, sequela Problem Obesity (BMI 30-39.9) E66.9 Active Problem S/P lumpectomy, left breast Z98.890 Active Problem Hypertension, unspecified type I10 Active Problem Uncontrolled type 2 diabetes E11.65 Active mellitus with hyperglycemia Problem History of breast cancer Z85.3 Active Problem Abnormal renal function test R94.4 Active Medications Medication Code System Code Instructions Start End Date Status Dosage Date Jardiance [facility] 41060297457 10 MG Orally Once Feb 11, June 10, Active 1 tablet a day 2018 2019 Results No Known Results Summary Purpose eClinicalWorks Submission
--- OUTSIDE RECORDS SUMMARY | 2019-03-25 14:06 | XMS REPORT ---
:1945 Author Organization [employer] Care Team Providers Name Role Phone Vince José Provider Role Unavailable Allergies, Adverse Reactions, Alerts Substance Reaction Event Type Enalapril Maleate cough Drug Allergy Problems Problem Type Condition Code Onset Dates Condition Status Problem Obesity (BMI 30-39.9) E66.9 Active Problem S/P lumpectomy, left breast Z98.890 Active Problem Hypertension, unspecified type I10 Active Problem Peripheral edema R60.9 Active Problem Adverse effect of T46.4X5A Active txmsjgzkbpb-lingssfwyc-ttcevv inhibitors, initial encounter Problem Cough R05 Active Problem Hypercholesterolemia E78.00 Active Problem Uncontrolled type 2 diabetes E11.65 Active mellitus with hyperglycemia Problem Abnormal renal function test R94.4 Active Problem Hyperglycemia R73.9 Active Assessment Nondisplaced fracture of base of S62.346D Active fifth metacarpal bone, right hand, subsequent encounter for fracture with routine healing Assessment Right hand pain M79.641 Active Assessment Displaced fracture of shaft of S62.324D Active fourth metacarpal bone, right hand, subsequent encounter for fracture with routine healing Problem History of breast cancer Z85.3 Active Medications Medication Code Code Instructions Start End Status Dosage System Date Date True Metrix ND 69119918441 - In Vitro pt Dec 20, Active as directed Blood Glucose testing one 2018 Test time a day Lancets ND 77986701222 - pt testing Dec 20, Active as directed one time a day 2019 Losartan ND 62234539193 25 MG Orally Nov 24, Active 1 tablet Potassium Once daily for 2019 high blood pressure FreeStyle ND 84548846330 - subcutaneous October 26, Active as directed Dennis 14 Day Check BS once 2019 Sensor daily and prn blood glucose NDC 0 as directed pt Dec 16August Active as directed test strip testing bs once 2019 15, daily 2020 Vitamin D3 ND 50782476119 2000 UNIT Active 1 tablet Orally Once a day Letrozole NDC 99485118874 2.5 MG Orally Active 1 tablet Once a day Tramadol HCl ND 04680617727 50 MG Oral Active (Schedule IV Drug) [facility] [address]-99 Active not defined Metformin HCl ND 90131916710 500 MG Orally October 26, Active 1 tablet Twice a day 2018 with a meal Carvedilol [facility] 2[place] 07537455256 25 MG Orally Active 1 tablet Twice a day FreeStyle [facility] [place]NOTE 2] 20622101012 - as directed October 26, Active as directed Dennis 14 Day Check BS once 2019 [place] daily and prn Cranberry [facility] [place] 2[place] 39927359722 400 MG Orally Active as directed Paroxetine HCl [facility] [place] 2] 09118225430 10 MG Orally Active 1 tablet in Once a day the morning Blood Glucose [facility] [place]NOTE 2] 82954096239 w/Device as Dec 16, Active as directed Monitor System directed pt 2019 testing bs once daily Enalapril [facility] [place]NOTE 2] [address]-54 Active not defined Maleate Results No Known Results Summary Purpose eClinicalWorks Submission
--- OUTSIDE RECORDS SUMMARY | 2019-03-25 14:06 | XMS REPORT ---
[...] Acute pain of right knee M25.561 Active Assessment Displaced fracture of shaft of S62.324D Active fourth metacarpal bone, right hand, subsequent encounter for fracture with routine healing Problem Status post fall Z91.81 Active Problem Swelling of right knee joint M25.461 Active Problem Adverse effect of T46.4X5A Active wabpmndtqkc-ruffbqfkez-nfbicz inhibitors, initial encounter Problem Cough R05 Active Problem Closed nondisplaced fracture of S62.304S Active fourth metacarpal bone of right hand, unspecified portion of metacarpal, sequela Problem Closed nondisplaced fracture of S62.306S Active fifth metacarpal bone of right hand, unspecified portion of metacarpal, sequela Assessment Pain in joint of right hand M25.541 Active Assessment Nondisplaced fracture of base of S62.346D Active fifth metacarpal bone, right hand, subsequent encounter for fracture with routine healing Assessment Right hand pain M79.641 Active Problem Obesity (BMI 30-39.9) E66.9 Active Problem S/P lumpectomy, left breast Z98.890 Active Problem Hypertension, unspecified type I10 Active Problem Uncontrolled type 2 diabetes E11.65 Active mellitus with hyperglycemia Problem History of breast cancer Z85.3 Active Problem Abnormal renal function test R94.4 Active Medications Medication Code Code Instructions Start End Date Status Dosage System Date FreeStyle ND 74633571789 - as directed October 26, Active as directed Dennis 14 Day Check BS once 2019 [place] daily and prn Cranberry ND 84646326495 400 MG Orally Active as directed Enalapril [facility] [address]-95 Active not defined Maleate True Metrix ND 84543845149 - In Vitro pt Dec 20, Active as directed Blood Glucose testing one 2018 Test time a day Januvia ND 57924408485 50 MG Orally Feb 02, Active 1 tablet Once a day for 2019 diabetes Tramadol HCl [facility] 92751609284 50 MG Oral Active (Schedule IV Drug) Vitamin D3 [facility] 94879738230 2000 UNIT Active 1 tablet Orally Once a day Jardiance [facility] 50642986216 10 MG Orally Feb 11May Active 1 tablet Once a day 2018 [facility] [address]-20 Active not defined Blood Glucose [facility] 10183655749 w/Device as Dec 16, Active as directed Monitor directed pt 2019 System testing bs once daily blood glucose ND 0 as directed pt Dec 16September 11, Active as directed test strip testing bs once 2018 2019 daily Losartan [facility] 05554880449 50 MG Orally Nov 24, Active 1 tablet Potassium Once daily for 2018 high blood pressure Carvedilol [facility] 34664788483 25 MG Orally Active 1 tablet Twice a day Lancets [facility] 71427017908 - pt testing Dec 20, Active as directed one time a day 2018 Novi 3 [facility] [address] Active not defined Letrozole [facility] 80430087108 2.5 MG Orally Active 1 tablet Once a day Paroxetine [facility] 79170392529 10 MG Orally Active 1 tablet in HCl Once a day the morning Farxiga [facility] 69152262170 5mg By Mouth Feb 07May Active 1 Dailly 2018 Results No Known Results Summary Purpose eClinicalWorks Submission
--- OUTSIDE RECORDS SUMMARY | 2019-03-25 14:06 | XMS REPORT ---
[...] Active Problem Adverse effect of T46.4X5A Active woffeqvpcpn-hgdzoffddo-lhmrou inhibitors, initial encounter Problem Cough R05 Active Problem Hypercholesterolemia E78.00 Active Problem Uncontrolled type 2 diabetes E11.65 Active mellitus with hyperglycemia Problem Abnormal renal function test R94.4 Active Problem Hyperglycemia R73.9 Active Assessment Closed displaced fracture of shaft S62.324A Active of fourth metacarpal bone of right hand, initial encounter Assessment Closed nondisplaced fracture of S62.346A Active base of fifth metacarpal bone of right hand, initial encounter Assessment Right hand pain M79.641 Active Problem History of breast cancer Z85.3 Active Medications Medication Code Code Instructions Start End Status Dosage System Date Date Cranberry ND 94071739657 400 MG Orally Active as directed Vitamin D3 ND 73693528475 2000 UNIT Orally Active 1 tablet Once a day blood glucose NDC 0 as directed pt Dec 16August Active as directed test strip testing bs once 2019 15, daily 2019 True Metrix ND 37684954715 - In Vitro pt Dec 20, Active as directed Blood Glucose testing one time 2019 Test a day Carvedilol ND 14998838485 25 MG Orally Active 1 tablet Twice a day Letrozole NDC 86758595268 2.5 MG Orally Active 1 tablet Once a day Paroxetine HCl ND 69488811701 10 MG Orally Active 1 tablet in Once a day the morning Blood Glucose ND 91078404853 w/Device as Dec 16, Active as directed Monitor System directed pt 2019 testing bs once daily Tramadol HCl ND 14063735076 50 MG Oral Active (Schedule IV Drug) Lancets [facility] 37080266274 - pt testing one Dec 20, Active as directed time a day 2018 Losartan ND 18616397448 25 MG Orally Nov 24, Active 1 tablet Potassium Once daily for 2019 high blood pressure FreeStyle [facility] 73964703177 - as directed October 26, Active as directed Dennis 14 Day Check BS once 2019 [place] daily and prn Metformin HCl [facility] 49645450086 500 MG Orally October 26, Active 1 tablet Twice a day 2018 with a meal Freeyle [facility] 87205447315 - subcutaneous October 26, Active as directed Dennis 14 Day Check BS once 2019 Sensor daily and prn Results No Known Results Summary Purpose eClinicalWorks Submission
--- OUTSIDE RECORDS SUMMARY | 2019-03-25 14:06 | XMS REPORT ---
[...] Active Problem Adverse effect of T46.4X5A Active bxwfekliyia-shihukmpex-pwybeb inhibitors, initial encounter Problem Cough R05 Active [...] Medications Medication Code System Code Instructions Start Date End Date Status Dosage Fernie [facility] 98376729797 5mg By Mouth Feb 07June 06, Active 1 Dailllay 2018 2019 Results No Known Results Summary Purpose eClinicalWorks Submission
--- OUTSIDE RECORDS SUMMARY | 2019-03-25 14:06 | XMS REPORT ---
:1945 Author Organization e[employer] Care Team Providers Name Role Phone Lana Sofy Provider Role Unavailable Allergies, Adverse Reactions, Alerts Substance Reaction Event Type Enalapril Maleate cough Drug Allergy Problems Problem Type Condition Code Onset Dates Condition Status Assessment S/P lumpectomy, left breast Z98.890 Active Assessment History of breast cancer Z85.3 Active Assessment Obesity (BMI 30-39.9) E66.9 Active Assessment Hypercholesterolemia E78.00 Active Problem Uncontrolled type 2 diabetes E11.65 Active mellitus with hyperglycemia Assessment Abnormal renal function test R94.4 Active Problem Abnormal renal function test R94.4 Active Assessment Uncontrolled type 2 diabetes E11.65 Active mellitus with hyperglycemia Problem Hypercholesterolemia E78.00 Active Problem Peripheral edema R60.9 Active Problem Hyperglycemia R73.9 Active Problem Acute pain of right knee M25.561 Active Problem Status post fall Z91.81 Active Assessment Closed nondisplaced fracture of S62.304S Active fourth metacarpal bone of right hand, unspecified portion of metacarpal, sequela Assessment Closed nondisplaced fracture of S62.306S Active fifth metacarpal bone of right hand, unspecified portion of metacarpal, sequela Problem Swelling of right knee joint M25.461 Active Assessment Status post fall Z91.81 Active Problem Adverse effect of T46.4X5A Active wgltnkqcehk-unllmoskeh-pnhezy inhibitors, initial encounter Problem Cough R05 Active Problem Closed nondisplaced fracture of S62.304S Active fourth metacarpal bone of right hand, unspecified portion of metacarpal, sequela Problem Closed nondisplaced fracture of S62.306S Active fifth metacarpal bone of right hand, unspecified portion of metacarpal, sequela Assessment Hypertension, unspecified type I10 Active Assessment Swelling of right knee joint M25.461 Active Assessment Acute pain of right knee M25.561 Active Problem Obesity (BMI 30-39.9) E66.9 Active Problem S/P lumpectomy, left breast Z98.890 Active Problem Hypertension, unspecified type I10 Active Problem History of breast cancer Z85.3 Active Medications Medication Code Code Instructions Start End Status Dosage System Date Date Letrozole [facility] 43831744633 2.5 MG Orally Active 1 tablet Once a day Blood Glucose [facility] 34069796559 w/Device as Dec 16, Active as Monitor directed pt 2018 directed System testing bs once daily Enalapril [facility] [address]-13 Active not Maleate defined Januvia [facility] 55974101635 50 MG Orally Feb 02, Active 1 tablet Once a day for 2018 diabetes Losartan ND 63263547158 50 MG Orally Nov 24, Active 1 tablet Potassium Once daily for 2018 high blood pressure Paroxetine [facility] 85988349093 10 MG Orally Active 1 tablet HCl Once a day in the morning Carvedilol [facility] 90395617732 25 MG Orally Active 1 tablet Twice a day Vitamin D3 [facility] 44449262077 2000 UNIT Active 1 tablet Orally Once a day blood glucose ND 0 as directed pt Dec 16August Active as test strip testing bs once 2018, directed daily 2019 Lancets [facility] 36269257052 - pt testing Dec 20, Active as one time a day 2018 directed [facility] [address]-76 Active not defined Metformin HCl [facility] 78164209953 500 MG Orally Inactive 1 tablet Twice a day with a meal Tramadol HCl [facility] 70770706210 50 MG Oral Active (Schedule IV Drug) FreeStyle [facility] 37200363019 - as directed October 26, Active as Dennis 14 Day Check BS once 2018 directed [place] daily and prn FreeStyle [facility] 40799219794 - subcutaneous October 26, Active as [place] 14 Day Check BS once 2019 directed Sensor daily and prn Cranberry [facility] 38571385124 400 MG Orally Active as directed True Metrix [facility] 11838418716 - In Vitro pt Dec 20, Active as Blood Glucose testing one 2018 directed Test time a day Results No Known Results Summary Purpose eClinicalWorks Submission
[2019-03-25 14:32] LABS: Urine Blood 1+ (NEG); Urine Glucose 2+ (NEG); Urine Protein 2+ (NEG); Urine Specific Gravity 1.025 (1.005-1.030)
[2019-03-25] MEDS ORDERED: ONDANSETRON 4 MG/2 ML VIAL ONE (14:38)
[2019-03-25] MEDS ORDERED: NA CHLORIDE 0.9% 500 ML ONE (14:38)
[2019-03-25 14:57] LABS: Absolute Lymphocytes (CBC) 0.4 K/uL (0.7-4.9); Basophils % 0.5 % (0-1.3); Hematocrit 43.1 % (36.0-45.0); Lymphocytes % 4.2 % (15.3-44.8); MPV 8.2 fL (7.6-11.3); RBC Red Blood Cell Count 4.69 M/uL (3.86-4.86)
[2019-03-25 15:14] LABS: Albumin 3.9 g/dL (3.4-5.0); Bilirubin Direct 0.1 mg/dL (0-0.2); Bilirubin Total 0.4 mg/dL (0.2-1.0); Potassium 4.4 mmol/L (3.5-5.1); Protein, Total 8.4 g/dL (6.4-8.2)
[2019-03-25 15:34] LABS: Platelet Estimate ADEQ
[2019-03-25 15:35] LABS: Blood Morphology Comment NOT SEEN (NOT SEEN)
--- NOTE | 2019-03-25 15:54 | RAD REPORT ---
EXAM DESCRIPTION: CT - Abdomen Pelvis W Contrast - 03/25/2019 3:33 pm CLINICAL HISTORY: Abdominal pain. Vomiting and diarrhea COMPARISON: 2018 TECHNIQUE: Computed axial tomography of the abdomen pelvis was obtained. 100 cc Isovue-300 was admin istered intravenously. Oral contrast was not requested which limits evaluation of bowel. All CT scans are performed using dose optimization technique as appropriate and may include automated exposure control or mA/KV adjustment according to patient size. FINDINGS: Fatty liver. Small hiatal hernia Gallstone. Gallbladder distention. Gallbladder wall is not thickened Spleen, pancreas, adrenal and kidneys appear unremarkable. There is no evidence of diverticulitis. Fluid in nondilated large and small bowel Spondylosis involves lumbar spine resulting in spinal stenosis . Mild anterior subluxation L4 on L5 IMPRESSION: Fatty liver Gallstone. Mild gallbladder distention. No evidence of acute cholecystitis. Fluid in nondilated large and small bowel may indicate an enteritis
--- NOTE | 2019-03-25 16:55 | ER ---
Nurse's Notes [facility] Name: Cassy Stafford Age: 73 yrs Sex: Female : 1945 Arrival Date: 03/25/2019 Time: 14:05 Bed 18 Private MD: Sofy Schwartz Diagnosis: Vomiting;Diarrhea, unspecified Presentation: 03/25 14:11 Presenting complaint: Patient states: vomiting diarrhea since 1030, called pcp but they ch did not call her back. Transition of care: patient was not received from another setting of care. Onset of symptoms was March 25, 2019 at 10:30. Risk Assessment: Do you want to hurt yourself or someone else? Patient reports no desire to harm self or others. Initial Sepsis Screen: Does the patient meet any 2 criteria? No. Patient's initial sepsis screen is negative. Does the patient have a suspected source of infection? No. Patient's initial sepsis screen is negative. Care prior to arrival: None. 14:11 Method Of Arrival: Ambulatory 14:11 Acuity: ONEIL 3 Triage Assessment: 14:13 General: Appears in no apparent distress. comfortable, Behavior is calm, cooperative, ch appropriate for age. Pain: Denies pain. GI: Reports diarrhea, vomiting, weakness. Historical: - Allergies: 14:13 No Known Allergies; - Home Meds: 14:13 carvedilol Oral [Active]; letrozole 2.5 mg Oral tab 1 tab once daily [Active]; losartan ch Oral [Active]; paroxetine Oral [Active]; avila for diabetes [Active]; - PMHx: 14:13 breast cancer; Diabetes - NIDDM; Hypertension; Hyperlipidemia; - PSHx: 14:13 left lumpectomy; Hysterectomy; - Immunization history:: Adult Immunizations up to date, Flu vaccine is up to date. - Social history:: Smoking status: Patient/guardian denies using tobacco, Patient/guardian denies using alcohol, street drugs. - Ebola Screening: : Patient negative for fever greater than or equal to 101.5 degrees Fahrenheit, and additional compatible Ebola Virus Disease symptoms Patient denies exposure to infectious person Patient denies travel to an Ebola-affected area in the 21 days before illness onset No symptoms or risks identified at this time. Screenin:57 Abuse screen: Denies threats or abuse. Nutritional screening: No deficits noted. ae4 Tuberculosis screening: No symptoms or risk factors identified. Fall Risk None identified. Assessment: 14:53 General: Appears uncomfortable, obese, Behavior is cooperative, anxious. Pain: ae4 Complains of pain in abdomen. Neuro: Level of Consciousness is awake, alert, obeys commands, Oriented to person, place, time, situation. Cardiovascular: Heart tones S1 S2 present Patient's skin is warm and dry. Respiratory: Airway is patent Respiratory effort is even, unlabored, Respiratory pattern is regular, symmetrical, Breath sounds are clear bilaterally. GI: Abdomen is round obese, Bowel sounds present X 4 quads. Abd is soft and non tender Reports lower abdominal pain, cramping, diarrhea, intolerance of fluids, intolerance of food, nausea, vomiting. : No signs and/or symptoms were reported regarding the genitourinary system. EENT: No signs and/or symptoms were reported regarding the EENT system. Derm: Skin is pale. Musculoskeletal: No signs and/or symptoms reported regarding the musculoskeletal system. Reports Generalized weakness. 16:23 Reassessment: Patient appears in no apparent distress at this time. Patient denies pain ae4 at this time. Patient states feeling better. Patient states symptoms have improved. 16:25 Reassessment: Provider at bedside discussing plan of care. ae4 Vital Signs: 14:13 BP 146 / 65; Pulse 92; Resp 16; Temp 99.8(O); Pulse Ox 98% on R/A; Weight 83.91 kg; ch Height 5 ft. (152.40 cm); Pain 0/10; 14:53 BP 143 / 74; Pulse 82; Resp 18; Pulse Ox 96% on R/A; ae4 16:27 BP 169 / 73; Pulse 95; Resp 16; Pulse Ox 98% on R/A; ae4 14:13 Body Mass Index 36.13 (83.91 kg, 152.40 cm) ED Course: 14:05 Patient arrived in ED. as 14:06 Sofy Schwartz MD is Private Physician. as 14:11 Triage completed. 14:13 Arm band placed on left wrist. Patient placed in an exam room, on a stretcher, on pulse oximetry. 14:17 Earle Berry PA is [facility] 14:17 Beto Elizabeth MD is Attending Physician. [facility] 14:21 Bentley Gonzalez, RN is Primary Nurse. ae4 14:48 Urine collected: clean catch specimen, clear, damian colored. jb1 14:56 Bed in low position. Call light in reach. Side rails up X 1. Adult w/ patient. Cardiac ae4 monitor on. Pulse ox on. Warm blanket given. 14:56 Inserted saline lock: 20 gauge in right antecubital area, using aseptic technique. ae4 Blood collected. 14:57 Radiology exam delayed due to lab results not completed at this time. (BUN/Creatinine). il 15:34 CT Abd/Pelvis - IV Contrast Only In Process Unspecified. EDMS 16:54 Sofy Schwartz MD is Referral Physician. [facility] 17:23 No provider procedures requiring assistance completed. IV discontinued, intact, ae4 bleeding controlled, No redness/swelling at site. Pressure dressing applied. Administered Medications: 14:40 Drug: Zofran 4 mg Route: IVP; Site: right antecubital; ae4 15:54 Follow up: Response: Nausea is decreased ae4 14:40 Drug: NS 0.9% 500 ml Route: IV; Rate: bolus; Site: right antecubital; ae4 16:24 Follow up: IV Status: Completed infusion; IV Intake: 500ml ae4 Intake: 16:24 IV: 500ml; Total: 500ml. ae4 Outcome: 16:54 Discharge ordered by MD. [facility] 17:22 Discharged to home ambulatory, with family. ae4 17:22 Condition: stable 17:22 Discharge instructions given to patient, family, Instructed on discharge instructions, follow up and referral plans. medication usage, Demonstrated understanding of instructions, Prescriptions given X 1. 17:23 Patient left the ED. ae4 Signatures: Dispatcher [employer] EDMS Kirill Hodge jb1 Judy Ellsworth, RN RN Earle Ferguson PA PA Blanca Bui Nathan nj Elliott, Andrea, RN RN ae4 Corrections: (The following items were deleted from the chart) 17:23 17:22 No provider procedures requiring assistance completed. ae4 ae4 :23 17:22 Patient did not have IV access during this emergency room visit. ae4 ae4
--- NOTE | 2019-03-25 16:55 | EDPHYS ---
Physician Documentation [facility] Name: Cassy Stafford Age: 73 yrs Sex: Female : 1945 Arrival Date: 03/25/2019 Time: 14:05 Bed 18 Private MD: Sofy Schwartz ED Physician Beto Elizabeth HPI: 03/25 14:25 This 73 yrs old Female presents to ER via Ambulatory with complaints of jmm Vomiting/Diarrhea. 14:25 The patient presents to the emergency department with nausea, vomiting, diarrhea. jmm Onset: The symptoms/episode began/occurred acutely. Possible causes: sick contacts, by family. The symptoms are aggravated by nothing. The symptoms are alleviated by nothing. Associated signs and symptoms: Pertinent negatives: abdominal pain, constipation, dysuria, fever. This is a 73 year old female with a history of DM, htn, hlp that presents to the ED with complaints of multiple episodes of vomiting and diarrhea beginning today. States family member had diarrhea yesterday. Denies recent abx use or recent travel. . Historical: - Allergies: 14:13 No Known Allergies; ch - Home Meds: 14:13 carvedilol Oral [Active]; letrozole 2.5 mg Oral tab 1 tab once daily [Active]; losartan ch Oral [Active]; paroxetine Oral [Active]; avila for diabetes [Active]; - PMHx: 14:13 breast cancer; Diabetes - NIDDM; Hypertension; Hyperlipidemia; ch - PSHx: 14:13 left lumpectomy; Hysterectomy; ch - Immunization history:: Adult Immunizations up to date, Flu vaccine is up to date. - Social history:: Smoking status: Patient/guardian denies using tobacco, Patient/guardian denies using alcohol, street drugs. - Ebola Screening: : Patient negative for fever greater than or equal to 101.5 degrees Fahrenheit, and additional compatible Ebola Virus Disease symptoms Patient denies exposure to infectious person Patient denies travel to an Ebola-affected area in the 21 days before illness onset No symptoms or risks identified at this time. ROS: 14:25 Constitutional: Negative for fever, chills, and weight loss, Cardiovascular: Negative jmm for chest pain, palpitations, and edema, Respiratory: Negative for shortness of breath, cough, wheezing, and pleuritic chest pain. 14:25 Abdomen/GI: Positive for nausea and vomiting, diarrhea. 14:25 All other systems are negative. Exam: 14:25 Constitutional: This is a well developed, well nourished patient who is awake, alert, jmm and in no acute distress. Head/Face: atraumatic. Eyes: EOMI, no conjunctival erythema appreciated ENT: Moist Mucus Membranes Neck: Trachea midline, Supple Chest/axilla: Normal chest wall appearance and motion. Cardiovascular: Regular rate and rhythm. No edema appreciated Respiratory: Normal respirations, no respiratory distress appreciated 14:25 Back: Normal ROM Skin: General appearance color normal MS/ Extremity: Moves all extremities, no obvious deformities appreciated, no edema noted to the lower extremities Neuro: Awake and alert, normal gait Psych: Behavior is normal, Mood is normal, Patient is cooperative and pleasant 14:25 Abdomen/GI: Inspection: abdomen appears normal, Bowel sounds: normal, Palpation: abdomen is soft and non-tender, in all quadrants. Vital Signs: 14:13 BP 146 / 65; Pulse 92; Resp 16; Temp 99.8(O); Pulse Ox 98% on R/A; Weight 83.91 kg; ch Height 5 ft. (152.40 cm); Pain 0/10; 14:53 BP 143 / 74; Pulse 82; Resp 18; Pulse Ox 96% on R/A; ae4 16:27 BP 169 / 73; Pulse 95; Resp 16; Pulse Ox 98% on R/A; ae4 14:13 Body Mass Index 36.13 (83.91 kg, 152.40 cm) ch MDM: 14:24 Patient medically screened. [facility] 16:53 Data reviewed: vital signs, nurses notes. Counseling: I had a detailed discussion with [facility] the patient and/or guardian regarding: the historical points, exam findings, and any diagnostic results supporting the discharge/admit diagnosis, lab results, radiology results, the need for outpatient follow up, to return to the emergency department if symptoms worsen or persist or if there are any questions or concerns that arise at home. ED course: Patient is alert and non toxic in appearance in the ED. Tolerates PO. Patient is given strict return precautions. Patient understood and agrees with the plan of care. . 03/25 14:18 Order name: Basic Metabolic Panel; Complete Time: 15:18 [facility] 03/25 14:18 Order name: CBC with Diff; Complete Time: 15:49 [facility] 03/25 14:18 Order name: Creatinine for Radiology; Complete Time: 15:13 [facility] 03/25 14:18 Order name: Hepatic Function; Complete Time: 15:18 [facility] 03/25 14:18 Order name: Lipase; Complete Time: 15:18 [facility] 03/25 14:29 Order name: Urine Dipstick--Ancillary (enter results) 03/25 14:18 Order name: IV Saline Lock; Complete Time: 14:49 [facility] 03/25 14:18 Order name: Labs collected and sent; Complete Time: 14:49 [facility] 03/25 14:18 Order name: Urine Dipstick-Ancillary (obtain specimen); Complete Time: 14:48 [facility] 03/25 14:29 Order name: CT Abd/Pelvis - IV Contrast Only; Complete Time: 16:03 [facility] 03/25 15:35 Order name: Manual Differential; Complete Time: 15:49 [facility] 03/25 16:03 Order name: PO challenge; Complete Time: 16:13 [facility] Administered Medications: 14:40 Drug: Zofran 4 mg Route: IVP; Site: right antecubital; ae4 15:54 Follow up: Response: Nausea is decreased ae4 14:40 Drug: NS 0.9% 500 ml Route: IV; Rate: bolus; Site: right antecubital; ae4 16:24 Follow up: IV Status: Completed infusion; IV Intake: 500ml ae4 Disposition: 17:51 Co-signature as Attending Physician, Beto Elizabeth MD I agree with the assessment and kdr plan of care. Disposition: 03/25/19 16:54 Discharged to Home. Impression: Vomiting, Diarrhea, unspecified. - Condition is Stable. - Prescriptions for Zofran ODT 4 mg Oral tablet,disintegrating - place 1 tablet by TRANSLINGUAL route every 4-6 hours; 20 tablet. Bentyl 20 mg Oral Tablet - take 1 tablet by ORAL route every 6 hours As needed; 20 tablet. - Medication Reconciliation Form, Thank You Letter, Antibiotic Education, Prescription Opioid Use form. - Follow up: Sofy Schwartz MD; When: 2 - 3 days; Reason: Recheck today's complaints, Continuance of care, Re-evaluation by your physician. Signatures: Dispatcher [employer] EDJudy Lr, RN RN Beto Elizabeth MD MD [facility] Earle Berry PA PA jmm Elliott, Andrea, RN RN ae4 Corrections: (The following items were deleted from the chart) 17:23 16:54 03/25/2019 16:54 Discharged to Home. Impression: Vomiting; Diarrhea, unspecified. ae4 Condition is Stable. Forms are Medication Reconciliation Form, Thank You Letter, Antibiotic Education, Prescription Opioid Use. Follow up: Sofy Schwartz; When: 2 - 3 days; Reason: Recheck today's complaints, Continuance of care, Re-evaluation by your physician. jo-ann
== END 2019-03-25 17:23 | disposition home or self-care (01) ==
LOC: ER 14:03
DX: R19.7 Diarrhea, unspecified (principal); I10 Essential (primary) hypertension; E11.9 Type 2 diabetes mellitus without complications; E78.5 Hyperlipidemia, unspecified; Z85.3 Personal history of malignant neoplasm of breast
CPT/HCPCS: 96361; 85025; 80048; 36415; 80076; 81003; 83690; 74177; 96374; 99284; Q9967; J7040; J2405

== ENCOUNTER → 2023-06-20 | Emergency (ER) | payer OTHER ==
[~2023-06-20] MED LIST changes: +HYDRALAZINE HCL 25 MG TABLET ONE; -NA CHLORIDE 0.9% 1,000 ML ONE; -RSI MEDICATION KIT IV ONE
--- OUTSIDE RECORDS SUMMARY | 2023-06-20 11:59 | XMS REPORT | Continuity of Care Document ---
Author Name Unknown Address [address] [place] [address] [facility] thconnect Address [address] [place] [address] Care Team Providers Care Substitute Bus Driver Name Role Phone WinklerYaz malone Attending Clinician Unavailable Miguel A Alston Attending Clinician Unavailable Sofy Schwartz Attending Clinician Unavailable [email or web address] Attending Clinician Unavaila ROSANNE Landers Attending Clinician Unavailable Lab, Adc Fam Pob I Attending Clinician Unavailab luciana Mendez MOLDED CANDLES WICKERRosanne Attending Clinician [phone] [email or web address] Admitting Clinician Unavaila mary jo Payers Payer Name Policy Type Policy Number Effective Date Expirati on Date Source [place] [employer] [place] MCR PPO 1 [id number] 2021 00:00:00 [facility] [employer] MEDICARE ERS [id number] 2016 00:00:00 Problems Condition Name Condition Details Condition Category Status Onset Date Resolution Date Last Treatment Date Treating Clinician Comments Source Age related osteoporos is Age related osteoporos is Problem [facility] Obesity Obesity, unspecifie d Problem [facility] [id number] Osteopenia of neck of left femur Problem [facility] Age-relate d osteoporos is Age-relate d osteoporos is without current pathologic al fracture Problem [facility] [id number] Thinning hair Problem [facility] [id number] Obesity (BMI 30-39.9) Problem [facility] [id number] Hypertensi on, unspecifie d type Problem [facility] [id number] History of breast cancer Problem [facility] [id number] Hyperchole sterolemia Problem [facility] [id number] Abnormal renal function test Problem [facility] [id number] Status post fall Problem [facility] [id number] Fatigue, unspecifie d type Problem [facility] [id number] 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 Problem [facility] [id number] S/P lumpectomy , left breast Problem [facility] [id number] Other chronic pain Problem [facility] [id number] Primary osteoarthr itis of right knee Problem [facility] [id number] Adverse effect of other vaccines and biological substances , initial encounter Problem [facility] Malignant neoplasm of lower-oute r quadrant of female breast Malignant neoplasm of lower-oute r quadrant of left female breast Problem [facility] Allergies, Adverse Reactions, Alerts Allergy Name Allergy Type Status Severity Reaction(s) Onset Date Inactive Date Treating Clinician Comments Source NO KNOWN ALLERGIE S Drug Class Active [facility] tirzepat lisa tirzepat lisa Active constipation [facility] enalapri l enalapri l Active cough [facility] metformi n metformi n Active diarrhea [facility] empaglif lozin empaglif lozin Active weak [facility] meloxica m meloxica m Active Lip swelling/num bness + numbness of fingertips of right hand [facility] Social History Social Habit Start Date Stop Date Quantity Comments Source History of Tobacco Use [facility] Sex Assigned At [facility] Smoking Status Start Date Stop Date Source Never Smoker [facility] Unknown if ever smoked [facility] Medications Ordered Medication Name Filled Medication Name Start Date Stop Date Current Medication? Ordering Clinician Indication Dosage Frequency Signature (SIG) Comments Components Source metFORMIN HCl 500 MG metFORMIN HCl 500 MG 05-22 00:00: 00 No 1{table t_with_ a_meal} BID metFORMIN HCl 500 MG Mounjaro 2.5 MG/0.5ML Mounjaro 2.5 MG/0.5ML 2022-0 10-21 00:00: 00 No .5{ml} Mounjaro 2.5 MG/0.5ML Mounjaro 2.5 MG/0.5ML Mounjaro 2.5 MG/0.5ML 3-0 10-21 00:00: 00 No .5{ml} Mounjaro 2.5 MG/0.5ML Mounjaro 2.5 MG/0.5ML Mounjaro 2.5 MG/0.5ML 3-0 10-21 00:00: 00 No .5{ml} Mounjaro 2.5 MG/0.5ML Mounjaro 2.5 MG/0.5ML Mounjaro 2.5 MG/0.5ML 3-0 10-21 00:00: 00 No .5{ml} Mounjaro 2.5 MG/0.5ML Mounjaro 2.5 MG/0.5ML Mounjaro 2.5 MG/0.5ML 3-0 10-21 00:00: 00 No .5{ml} Mounjaro 2.5 MG/0.5ML Mounjaro 2.5 MG/0.5ML Mounjaro 2.5 MG/0.5ML 3-0 10-21 00:00: 00 No .5{ml} Mounjaro 2.5 MG/0.5ML Mounjaro 2.5 MG/0.5ML Mounjaro 2.5 MG/0.5ML 2023-0 7- 00:00: 00 No .5{ml} Mounjaro 2.5 MG/0.5ML Tradjenta 5 MG Tradjenta 5 MG 9 00:00: 00 No 1{table t} QD Tradjenta 5 MG Meloxicam Meloxicam 5 00:00: 00 09-21 00:00 :00 No Sofy Millender 1 tablet [facility] Bupivicaine Tyler Bupivicaine Tyler 0 3-05 00:00: 00 No 4mL [facility] Kenalog (Triamcinol one) Kenalog (Triamcinol one) 0 3-05 00:00: 00 No 40mg [facility] Bupivicaine Tyler Bupivicaine Tyler 2019-0 3-05 00:00: 00 No 4mL [facility] Kenalog (Triamcinol one) Kenalog (Triamcinol one) 0 3-05 00:00: 00 No 40mg [facility] Bupivicaine Tyler Bupivicaine Tyler 2019-0 3-05 00:00: 00 No 4mL [facility] Kenalog (Triamcinol one) Kenalog (Triamcinol one) 0 3-05 00:00: 00 No 40mg [facility] Bupivicaine Tyler Bupivicaine Tyler 2019-0 3-05 00:00: 00 No 4mL [facility] Kenalog (Triamcinol one) Kenalog (Triamcinol one) 0 3-05 00:00: 00 No 40mg [facility] Bupivicaine Tyler Bupivicaine Tyler 2019-0 3-05 00:00: 00 No 4mL [facility] Kenalog (Triamcinol one) Kenalog (Triamcinol one) 2019-0 3-05 00:00: 00 No 40mg [facility] Bupivicaine Tyler Bupivicaine Tyler 2019-0 3-05 00:00: 00 No 4mL [facility] Kenalog (Triamcinol one) Kenalog (Triamcinol one) 2019-0 3-05 00:00: 00 No 40mg [facility] Bupivicaine Tyler Bupivicaine Tyler 2019-0 3-05 00:00: 00 No 4mL [facility] Kenalog (Triamcinol one) Kenalog (Triamcinol one) 2019-0 3-05 00:00: 00 No 40mg [facility] Bupivicaine Tyler Bupivicaine Tyler 2019-0 3-05 00:00: 00 No 4mL [facility] Kenalog (Triamcinol one) Kenalog (Triamcinol one) 2019-0 3-05 00:00: 00 No 40mg [facility] Kenalog (Triamcinol one) Kenalog (Triamcinol one) 2019-0 3-05 00:00: 00 No 40mg [facility] Bupivicaine Tyler Bupivicaine Tyler 2019-0 3-05 00:00: 00 No 4mL [facility] Bupivicaine Tyler Bupivicaine Tyler 2019-0 3-05 00:00: 00 No 4mL [facility] Kenalog (Triamcinol one) Kenalog (Triamcinol one) 2019-0 3-05 00:00: 00 No 40mg [facility] Bupivicaine Tyler Bupivicaine Tyler 2019-0 3-05 00:00: 00 No 4mL [facility] Kenalog (Triamcinol one) Kenalog (Triamcinol one) 2019-0 3-05 00:00: 00 No 40mg [facility] Bupivicaine Tyler Bupivicaine Tyler 2019-0 3-05 00:00: 00 No 4mL [facility] Kenalog (Triamcinol one) Kenalog (Triamcinol one) 2019-0 3-05 00:00: 00 No 40mg [facility] Bupivicaine Tyler Bupivicaine Tyler 2020-0 3-05 00:00: 00 No 4mL [facility] Kenalog (Triamcinol one) Kenalog (Triamcinol one) 2019-0 3-05 00:00: 00 No 40mg [facility] Bupivicaine Tyler Bupivicaine Tyler 2019-0 3-05 00:00: 00 No 4mL [facility] Kenalog (Triamcinol one) Kenalog (Triamcinol one) 2019-0 3-05 00:00: 00 No 40mg [facility] Bupivicaine Tyler Bupivicaine Tyler 2019-0 3-05 00:00: 00 No 4mL [facility] Kenalog (Triamcinol one) Kenalog (Triamcinol one) 2019-0 3-05 00:00: 00 No 40mg [facility] Bupivicaine Tyler Bupivicaine Tyler 2019-0 3-05 00:00: 00 No 4mL [facility] Kenalog (Triamcinol one) Kenalog (Triamcinol one) 2019-0 3-05 00:00: 00 No 40mg [facility] Bupivicaine Tyler Bupivicaine Tyler 2019-0 3-05 00:00: 00 No 4mL [facility] Kenalog (Triamcinol one) Kenalog (Triamcinol one) 2019-0 3-05 00:00: 00 No 40mg [facility] Solumedrol 125mg/2ml Solumedrol 125mg/2ml 2019-0 2-05 00:00: 00 No 125mg [facility] Solumedrol 125mg/2ml Solumedrol 125mg/2ml 0 2-05 00:00: 00 No 125mg [facility] Solumedrol 125mg/2ml Solumedrol 125mg/2ml 2019-0 2-05 00:00: 00 No 125mg [facility] Solumedrol 125mg/2ml Solumedrol 125mg/2ml 2020-0 2-05 00:00: 00 No 125mg [facility] Solumedrol 125mg/2ml Solumedrol 125mg/2ml 2020-0 2-05 00:00: 00 No [facility]mg [facility] Solumedrol 125mg/2ml Solumedrol 125mg/2ml 2019-0 2-05 00:00: 00 No 125mg [facility] Solumedrol 125mg/2ml Solumedrol 125mg/2ml 2019-0 2-05 00:00: 00 No 125mg [facility] Solumedrol 125mg/2ml Solumedrol 125mg/2ml 2019-0 2-05 00:00: 00 No 125mg [facility] Solumedrol 125mg/2ml Solumedrol 125mg/2ml 2019-0 2-05 00:00: 00 No 125mg [facility] Solumedrol 125mg/2ml Solumedrol 125mg/2ml 2019-0 2-05 00:00: 00 No 125mg [facility] Solumedrol 125mg/2ml Solumedrol 125mg/2ml 2019-0 2-05 00:00: 00 No 125mg [facility] Solumedrol 125mg/2ml Solumedrol 125mg/2ml 2019-0 2-05 00:00: 00 No 125mg [facility] Solumedrol 125mg/2ml Solumedrol 125mg/2ml 2019-0 2-05 00:00: 00 No 125mg [facility] Solumedrol 125mg/2ml Solumedrol 125mg/2ml 2019-0 2-05 00:00: 00 No 125mg [facility] Solumedrol 125mg/2ml Solumedrol 125mg/2ml 2019-0 2-05 00:00: 00 No 125mg [facility] Solumedrol 125mg/2ml Solumedrol 125mg/2ml 2020-0 205 00:00: 00 No 125mg [facility] Solumedrol 125mg/2ml Solumedrol 125mg/2ml 0 205 00:00: 00 No 125mg [facility] True Metrix Blood Glucose Test True Metrix Blood Glucose Test 0 12-20 00:00: 00 Yes Sofy Schwartz as directed [facility] Lancets Lancets 12-20 00:00: 00 Yes Sofy Schwartz as directed [facility] Blood Glucose Monitor System Blood Glucose Monitor System 12-16 00:00: 00 Yes Sofy Schwartz as directed [facility] blood glucose test strip blood glucose test strip 0 12-16 00:00: 00 09-11 00:00 :00 No Sofy Schwartz as directed [facility] Losartan Potassium Losartan Potassium 11-24 00:00: 00 Yes Sofy Schwartz 1 tablet [facility] FreeStyle Dennis 14 Day Corbett FreeStyle Dennis 14 Day Corbett 0 10-26 00:00: 00 Yes Sofy Schwartz as directed [facility] FreeStyle Dennis 14 Day Corbett - FreeStyle Dennis 14 Day Corbett - 0 10-26 00:00: 00 No FreeStyle Dennis 14 Day Corbett - FreeStyle Dennis 14 Day Corbett - FreeStyle Dennis 14 Day Corbett - 0 10-26 00:00: 00 No FreeStyle Dennis 14 Day Corbett - FreeStyle Dennis 14 Day Corbett - FreeStyle Dennis 14 Day Corbett - 0 10-26 00:00: 00 No FreeStyle Dennis 14 Day Corbett - FreeStyle Dennis 14 Day Corbett - FreeStyle Dennis 14 Day Corbett - 0 10-26 00:00: 00 No FreeStyle Dennis 14 Day Corbett - FreeStyle Dennis 14 Day Corbett - FreeStyle Dennis 14 Day Corbett - 0 10-26 00:00: 00 No FreeStyle Dennis 14 Day Corbett - FreeStyle Dennis 14 Day Corbett - FreeStyle Dennis 14 Day Corbett - 2018-0 10-26 00:00: 00 No FreeStyle Dennis 14 Day Corbett - FreeStyle Dennis 14 Day Corbett - FreeStyle Dennis 14 Day Corbett - 2018-0 30 00:00: 00 No FreeStyle Dennis 14 Day Corbett - FreeStyle Dennis 14 Day Corbett - FreeStyle Dennis 14 Day Corbett - 2018-0 30 00:00: 00 No FreeStyle Dennis 14 Day Corbett - FreeStyle Dennis 14 Day Corbett - FreeStyle Dennis 14 Day Corbett - 2018-0 10-26 00:00: 00 No FreeStyle Dennis 14 Day Corbett - FreeStyle Dennis 14 Day Corbett - FreeStyle Dennis 14 Day Corbett - 2018-0 10-26 00:00: 00 No FreeStyle Dennis 14 Day Corbett - FreeStyle Dennis 14 Day Corbett - FreeStyle Dennis 14 Day Corbett - 0 10-26 00:00: 00 No FreeStyle Dennis 14 Day Corbett - FreeStyle Dennis 14 Day Corbett - FreeStyle Dennis 14 Day Corbett - 2018-0 10-26 00:00: 00 No FreeStyle Dennis 14 Day Corbett - FreeStyle Dennis 14 Day Corbett - FreeStyle Dennis 14 Day Corbett - 0 30 00:00: 00 No FreeStyle Dennis 14 Day Corbett - FreeStyle Dennis 14 Day Corbett - FreeStyle Dennis 14 Day Corbett - 0 10-26 00:00: 00 No FreeStyle Dennis 14 Day Corbett - FreeStyle Dennis 14 Day Corbett - FreeStyle Dennis 14 Day Corbett - 2018-0 10-26 00:00: 00 No FreeStyle Dennis 14 Day Corbett - carvedilol (COREG) 6.25 mg tablet 2016-03 21:19: 44 Yes 6.25mg Take 6.25 mg by mouth 2 (two) times daily with meals. [facility] carvedilol (COREG) 6.25 mg tablet 2016-03 21:19: 44 Yes 6.25mg Take 6.25 mg by mouth 2 (two) times daily with meals. [facility] Cranberry Cranberry Yes Sofy Millender as directed [facility] Enalapril Maleate Enalapril Maleate Yes Sofy Millender not defined [facility] Tramadol HCl Tramadol HCl Yes Sofy Mccabeender (Schedule IV Drug) [facility] Vitamin D3 Vitamin D3 Yes Sofy Millender 1 tablet [facility] Nyamyc Nyamyc Yes Sofy Millender not defined [facility] Carvedilol Carvedilol Yes Sofy Millender 1 tablet [facility] Covert 3 Covert 3 Yes Sofy Millender not defined [facility] Letrozole Letrozole Yes Sofy Millender 1 tablet [facility] Paroxetine HCl Paroxetine HCl Yes Sofy Millender 1 tablet in the morning [facility] Metformin HCl Metformin HCl Yes Sofy Mccabeender not defined [facility] Jardiance Jardiance Yes Sofy Millender not defined [facility] Ondansetron Ondansetron Yes Sofy Millender not defined [facility] Dicyclomine HCl Dicyclomine HCl Yes Sofy Millender not defined [facility] Vitamin D3 2000 UNIT Vitamin D3 2000 UNIT No 1{table t} QD Vitamin D3 2000 UNIT Losartan Potassium 50 MG Losartan Potassium 50 MG No Losartan Potassium 50 MG Tradjenta 5 MG Tradjenta 5 MG No 1{table t} QD Tradjenta 5 MG Cranberry 400 MG Cranberry 400 MG No Cranberry 400 MG Carvedilol 25 MG Carvedilol 25 MG No 1{table t} BID Carvedilol 25 MG Letrozole 2.5 MG Letrozole 2.5 MG No 1{table t} QD Letrozole 2.5 MG Letrozole 2.5 MG Letrozole 2.5 MG No 1{table t} QD Letrozole 2.5 MG Vitamin D3 2000 UNIT Vitamin D3 2000 UNIT No 1{table t} QD Vitamin D3 2000 UNIT Tradjenta 5 MG Tradjenta 5 MG No Tradjenta 5 MG Losartan Potassium 50 MG Losartan Potassium 50 MG No Losartan Potassium 50 MG Cranberry 400 MG Cranberry 400 MG No Cranberry 400 MG Carvedilol 12.5 MG Carvedilol 12.5 MG No 1{table t} BID Carvedilol 12.5 MG Carvedilol 12.5 MG Carvedilol 12.5 MG No Carvedilol 12.5 MG Cranberry 400 MG Cranberry 400 MG No Cranberry 400 MG Tradjenta 5 MG Tradjenta 5 MG No Tradjenta 5 MG Vitamin D3 2000 UNIT Vitamin D3 2000 UNIT No 1{table t} QD Vitamin D3 2000 UNIT Tradjenta 5 MG Tradjenta 5 MG No Tradjenta 5 MG Vitamin D3 2000 UNIT Vitamin D3 2000 UNIT No 1{table t} QD Vitamin D3 2000 UNIT Carvedilol 12.5 MG Carvedilol 12.5 MG No BID Carvedilol 12.5 MG Cranberry 400 MG Cranberry 400 MG No Cranberry 400 MG Carvedilol 12.5 MG Carvedilol 12.5 MG No Carvedilol 12.5 MG Vitamin D3 2000 UNIT Vitamin D3 2000 UNIT No 1{table t} QD Vitamin D3 2000 UNIT Carvedilol 12.5 MG Carvedilol 12.5 MG No BID Carvedilol 12.5 MG Cranberry 400 MG Cranberry 400 MG No Cranberry 400 MG Tradjenta 5 MG Tradjenta 5 MG No Tradjenta 5 MG Carvedilol 12.5 MG Carvedilol 12.5 MG No Carvedilol 12.5 MG Cranberry 400 MG Cranberry 400 MG No Cranberry 400 MG Carvedilol 12.5 MG Carvedilol 12.5 MG No BID Carvedilol 12.5 MG Tradjenta 5 MG Tradjenta 5 MG No 1{table t} QD Tradjenta 5 MG Vitamin D3 2000 UNIT Vitamin D3 2000 UNIT No 1{table t} QD Vitamin D3 2000 UNIT Vitamin D3 2000 UNIT Vitamin D3 2000 UNIT No 1{table t} QD Vitamin D3 2000 UNIT Calcium Calcium No Calcium Carvedilol 12.5 MG Carvedilol 12.5 MG No 1{table t_with_ food} BID Carvedilol 12.5 MG Tradjenta 5 MG Tradjenta 5 MG No Tradjenta 5 MG Cranberry 400 MG Cranberry 400 MG No Cranberry 400 MG Collagen 1500/C Collagen 1500/C No Collagen 1500/C Vitamin D3 2000 UNIT Vitamin D3 2000 UNIT No 1{table t} QD Vitamin D3 2000 UNIT Calcium Calcium No Calcium Carvedilol 12.5 MG Carvedilol 12.5 MG No 1{table t_with_ food} BID Carvedilol 12.5 MG Tradjenta 5 MG Tradjenta 5 MG No Tradjenta 5 MG Cranberry 400 MG Cranberry 400 MG No Cranberry 400 MG Collagen 1500/C Collagen 1500/C No Collagen 1500/C Vitamin D3 2000 UNIT Vitamin D3 2000 UNIT No 1{table t} QD Vitamin D3 2000 UNIT Calcium Calcium No Calcium Carvedilol 12.5 MG Carvedilol 12.5 MG No 1{table t_with_ food} BID Carvedilol 12.5 MG Tradjenta 5 MG Tradjenta 5 MG No Tradjenta 5 MG Cranberry 400 MG Cranberry 400 MG No Cranberry 400 MG Collagen 1500/C Collagen 1500/C No Collagen 1500/C Vitamin D3 2000 UNIT Vitamin D3 2000 UNIT No 1{table t} QD Vitamin D3 2000 UNIT Calcium Calcium No Calcium Carvedilol 12.5 MG Carvedilol 12.5 MG No 1{table t_with_ food} BID Carvedilol 12.5 MG Tradjenta 5 MG Tradjenta 5 MG No Tradjenta 5 MG Cranberry 400 MG Cranberry 400 MG No Cranberry 400 MG Collagen 1500/C Collagen 1500/C No Collagen 1500/C Vitamin D3 2000 UNIT Vitamin D3 2000 UNIT No 1{table t} QD Vitamin D3 2000 UNIT Calcium Calcium No Calcium Carvedilol 12.5 MG Carvedilol 12.5 MG No 1{table t_with_ food} BID Carvedilol 12.5 MG Tradjenta 5 MG Tradjenta 5 MG No Tradjenta 5 MG Cranberry 400 MG Cranberry 400 MG No Cranberry 400 MG Collagen 1500/C Collagen 1500/C No Collagen 1500/C Vitamin D3 2000 UNIT Vitamin D3 2000 UNIT No 1{table t} QD Vitamin D3 2000 UNIT Calcium Calcium No Calcium Carvedilol 12.5 MG Carvedilol 12.5 MG No 1{table t_with_ food} BID Carvedilol 12.5 MG Tradjenta 5 MG Tradjenta 5 MG No Tradjenta 5 MG Cranberry 400 MG Cranberry 400 MG No Cranberry 400 MG Collagen 1500/C Collagen 1500/C No Collagen 1500/C Vitamin D3 2000 UNIT Vitamin D3 2000 UNIT No 1{table t} QD Vitamin D3 2000 UNIT Calcium Calcium No Calcium Carvedilol 12.5 MG Carvedilol 12.5 MG No 1{table t_with_ food} BID Carvedilol 12.5 MG Tradjenta 5 MG Tradjenta 5 MG No Tradjenta 5 MG Cranberry 400 MG Cranberry 400 MG No Cranberry 400 MG Collagen 1500/C Collagen 1500/C No Collagen 1500/C Tradjenta 5 MG Tradjenta 5 MG No Tradjenta 5 MG Cranberry 400 MG Cranberry 400 MG No Cranberry 400 MG Vitamin D3 1999 UNIT Vitamin D3 2000 UNIT No 1{table t} QD Vitamin D3 1999 UNIT Stool Softener Stool Softener No Stool Softener Carvedilol 12.5 MG Carvedilol 12.5 MG No 1{table t_with_ food} BID Carvedilol 12.5 MG Calcium Calcium No Calcium Tradjenta 5 MG Tradjenta 5 MG No Tradjenta 5 MG Cranberry 400 MG Cranberry 400 MG No Cranberry 400 MG Vitamin D3 1999 UNIT Vitamin D3 1999 UNIT No 1{table t} QD Vitamin D3 2000 UNIT Stool Softener Stool Softener No Stool Softener Carvedilol 12.5 MG Carvedilol 12.5 MG No 1{table t_with_ food} BID Carvedilol 12.5 MG Calcium Calcium No Calcium Stool Softener Stool Softener No Stool Softener Cranberry 400 MG Cranberry 400 MG No Cranberry 400 MG Vitamin D3 1999 UNIT Vitamin D3 2000 UNIT No 1{table t} QD Vitamin D3 1999 UNIT Carvedilol 12.5 MG Carvedilol 12.5 MG No Carvedilol 12.5 MG Tradjenta 5 MG Tradjenta 5 MG No QD Tradjenta 5 MG Calcium Calcium No Calcium Tradjenta 5 MG Tradjenta 5 MG No QD Tradjenta 5 MG Vitamin D3 1999 UNIT Vitamin D3 2000 UNIT No 1{table t} QD Vitamin D3 1999 UNIT Calcium Calcium No Calcium Stool Softener Stool Softener No Stool Softener Carvedilol 12.5 MG Carvedilol 12.5 MG No Carvedilol 12.5 MG Cranberry 400 MG Cranberry 400 MG No Cranberry 400 MG Tradjenta 5 MG Tradjenta 5 MG No Tradjenta 5 MG Vitamin D3 2000 UNIT Vitamin D3 2000 UNIT No 1{table t} QD Vitamin D3 2000 UNIT Carvedilol 12.5 MG Carvedilol 12.5 MG No BID Carvedilol 12.5 MG Cranberry 400 MG Cranberry 400 MG No Cranberry 400 MG Vitamin D3 2000 UNIT Vitamin D3 2000 UNIT No 1{table t} QD Vitamin D3 2000 UNIT Letrozole 2.5 MG Letrozole 2.5 MG No 1{table t} QD Letrozole 2.5 MG Losartan Potassium 50 MG Losartan Potassium 50 MG No 1{table t} Losartan Potassium 50 MG Carvedilol 25 MG Carvedilol 25 MG No 1{table t} BID Carvedilol 25 MG Cranberry 400 MG Cranberry 400 MG No Cranberry 400 MG Immunizations Ordered Immunization Name Filled Immunization Name Date Status Comments Source Prevnar 20 (PCV20) Prevnar 20 (PCV20) 2022-07-21 16:07:00 Completed [facility] FLUZONE HIGH DOSE OVER 65 FLUZONE HIGH DOSE OVER 65 2020-12-26 14:10:00 Completed [facility] FLUZONE HIGH DOSE OVER 65 FLUZONE HIGH DOSE OVER 65 2020-12-26 14:10:00 Completed [facility] FLUZONE HIGH DOSE OVER 65 FLUZONE HIGH DOSE OVER 65 2020-12-26 14:10:00 Completed [facility] FLUZONE HIGH DOSE OVER 65 FLUZONE HIGH DOSE OVER 65 2020-12-26 14:10:00 Completed [facility] FLUZONE HIGH DOSE OVER 65 FLUZONE HIGH DOSE OVER 65 2020-12-26 14:10:00 Completed [facility] FLUZONE HIGH DOSE OVER 65 FLUZONE HIGH DOSE OVER 65 2020-12-26 14:10:00 Completed [facility] FLUZONE HIGH DOSE OVER 65 FLUZONE HIGH DOSE OVER 65 2020-12-26 14:10:00 Completed [facility] FLUZONE HIGH DOSE OVER 65 FLUZONE HIGH DOSE OVER 65 2020-12-26 14:10:00 Completed [facility] Moderna COVID-19 Vaccine Moderna COVID-19 Vaccine 2020-05-03 14:12:00 Completed [facility] Moderna COVID-19 Vaccine Moderna COVID-19 Vaccine 2020-05-03 13:30:00 Completed [facility] Moderna COVID-19 Vaccine Moderna COVID-19 Vaccine 2020-05-03 13:30:00 Completed [facility] Moderna COVID-19 Vaccine Moderna COVID-19 Vaccine 2020-05-03 13:30:00 Completed [facility] Moderna COVID-19 Vaccine Moderna COVID-19 Vaccine 2020-05-03 13:30:00 Completed [facility] Moderna COVID-19 Vaccine Moderna COVID-19 Vaccine 2020-05-03 13:30:00 Completed [facility] Moderna COVID-19 Vaccine Moderna COVID-19 Vaccine 2020-05-03 13:30:00 Completed [facility] Moderna COVID-19 Vaccine Moderna COVID-19 Vaccine 2020-05-03 13:30:00 Completed [facility] Moderna COVID-19 Vaccine Moderna COVID-19 Vaccine 2020-05-03 13:30:00 Completed [facility] Moderna COVID-19 Vaccine Moderna COVID-19 Vaccine 2020-04-05 14:11:00 Completed [facility] Moderna COVID-19 Vaccine Moderna COVID-19 Vaccine 2020-04-05 13:39:00 Completed [facility] Moderna COVID-19 Vaccine Moderna COVID-19 Vaccine 2020-04-05 13:39:00 Completed [facility] Moderna COVID-19 Vaccine Moderna COVID-19 Vaccine 2020-04-05 13:39:00 Completed [facility] Moderna COVID-19 Vaccine Moderna COVID-19 Vaccine 2020-04-05 13:39:00 Completed [facility] Moderna COVID-19 Vaccine Moderna COVID-19 Vaccine 2020-04-05 13:39:00 Completed [facility] Moderna COVID-19 Vaccine Moderna COVID-19 Vaccine 2020-04-05 13:39:00 Completed [facility] Moderna COVID-19 Vaccine Moderna COVID-19 Vaccine 2020-04-05 13:39:00 Completed [facility] Moderna COVID-19 Vaccine Moderna COVID-19 Vaccine 2020-04-05 13:39:00 Completed [facility] Kenalog (Triamcinolone) Kenalog (Triamcinolone) 2019-06-02 16:10:00 Completed [facility] Bupivicaine Tyler Bupivicaine Tyler 2019-06-02 16:09:00 Completed [facility] Solumedrol 125mg/2ml Solumedrol 125mg/2ml 2019-05-04 16:01:00 Completed [facility] Prevnar 20 (PCV20) Prevnar 20 (PCV20) Unknown Completed [facility] FluAD Quad SD FluAD Quad SD Unknown Completed Co [facility] Moderna COVID-19 Vaccine Moderna COVID-19 Vaccine Unknown Completed [facility] Moderna COVID-19 Vaccine Moderna COVID-19 Vaccine Unknown Completed [facility] FLUZONE HIGH DOSE OVER 65 FLUZONE HIGH DOSE OVER 65 Unknown Completed [facility] Prevnar 20 (PCV20) Prevnar 20 (PCV20) Unknown Completed [facility] FluAD Quad SD FluAD Quad SD Unknown Completed Co [facility] Moderna COVID-19 Vaccine Moderna COVID-19 Vaccine Unknown Completed [facility] Moderna COVID-19 Vaccine Moderna COVID-19 Vaccine Unknown Completed [facility] FLUZONE HIGH DOSE OVER 65 FLUZONE HIGH DOSE OVER 65 Unknown Completed [facility] Prevnar 20 (PCV20) Prevnar 20 (PCV20) Unknown Completed [facility] FluAD Quad SD FluAD Quad SD Unknown Completed Co [facility] Moderna COVID-19 Vaccine Moderna COVID-19 Vaccine Unknown Completed [facility] Moderna COVID-19 Vaccine Moderna COVID-19 Vaccine Unknown Completed [facility] FLUZONE HIGH DOSE OVER 65 FLUZONE HIGH DOSE OVER 65 Unknown Completed [facility] Moderna COVID-19 Vaccine Moderna COVID-19 Vaccine Unknown Completed [facility] Prevnar 20 (PCV20) Prevnar 20 (PCV20) Unknown Completed [facility] FluAD Quad SD FluAD Quad SD Unknown Completed [facility] Moderna COVID-19 Vaccine Moderna COVID-19 Vaccine Unknown Completed [facility] FLUZONE HIGH DOSE OVER 65 FLUZONE HIGH DOSE OVER 65 Unknown Completed [facility] Prevnar 20 (PCV20) Prevnar 20 (PCV20) Unknown Completed [facility] FluAD Quad SD FluAD Quad SD Unknown Completed [facility] Moderna COVID-19 Vaccine Moderna COVID-19 Vaccine Unknown Completed [facility] Moderna COVID-19 Vaccine Moderna COVID-19 Vaccine Unknown Completed [facility] FLUZONE HIGH DOSE OVER 65 FLUZONE HIGH DOSE OVER 65 Unknown Completed [facility] Prevnar 20 (PCV20) Prevnar 20 (PCV20) Unknown Completed [facility] Fluad (aIIV4) - SDS - 0.5mL Fluad (aIIV4) - SDS - 0.5mL Unknown Completed [facility] Moderna COVID-19 Vaccine Moderna COVID-19 Vaccine Unknown Completed [facility] Moderna COVID-19 Vaccine Moderna COVID-19 Vaccine Unknown Completed [facility] FLUZONE HIGH DOSE OVER 65 FLUZONE HIGH DOSE OVER 65 Unknown Completed [facility] Prevnar 20 (PCV20) Prevnar 20 (PCV20) Unknown Completed [facility] Fluad (aIIV4) - SDS - 0.5mL Fluad (aIIV4) - SDS - 0.5mL Unknown Completed [facility] Moderna COVID-19 Vaccine Moderna COVID-19 Vaccine Unknown Completed [facility] Moderna COVID-19 Vaccine Moderna COVID-19 Vaccine Unknown Completed [facility] FLUZONE HIGH DOSE OVER 65 FLUZONE HIGH DOSE OVER 65 Unknown Completed [facility] Prevnar 20 (PCV20) Prevnar 20 (PCV20) Unknown Completed [facility] Fluad (aIIV4) - SDS - 0.5mL Fluad (aIIV4) - SDS - 0.5mL Unknown Completed [facility] Moderna COVID-19 Vaccine Moderna COVID-19 Vaccine Unknown Completed [facility] Moderna COVID-19 Vaccine Moderna COVID-19 Vaccine Unknown Completed [facility] FLUZONE HIGH DOSE OVER 65 FLUZONE HIGH DOSE OVER 65 Unknown Completed [facility] Prevnar 20 (PCV20) Prevnar 20 (PCV20) Unknown Completed [facility] Fluad (aIIV4) - SDS - 0.5mL Fluad (aIIV4) - SDS - 0.5mL Unknown Completed [facility] Moderna COVID-19 Vaccine Moderna COVID-19 Vaccine Unknown Completed [facility] Moderna COVID-19 Vaccine Moderna COVID-19 Vaccine Unknown Completed [facility] FLUZONE HIGH DOSE OVER 65 FLUZONE HIGH DOSE OVER 65 Unknown Completed [facility] Prevnar 20 (PCV20) Prevnar 20 (PCV20) Unknown Completed [facility] Fluad (aIIV4) - SDS - 0.5mL Fluad (aIIV4) - SDS - 0.5mL Unknown Completed [facility] Moderna COVID-19 Vaccine Moderna COVID-19 Vaccine Unknown Completed [facility] Moderna COVID-19 Vaccine Moderna COVID-19 Vaccine Unknown Completed [facility] FLUZONE HIGH DOSE OVER 65 FLUZONE HIGH DOSE OVER 65 Unknown Completed [facility] Prevnar 20 (PCV20) Prevnar 20 (PCV20) Unknown Completed [facility] Fluad (aIIV4) - SDS - 0.5mL Fluad (aIIV4) - SDS - 0.5mL Unknown Completed [facility] Moderna COVID-19 Vaccine Moderna COVID-19 Vaccine Unknown Completed [facility] Moderna COVID-19 Vaccine Moderna COVID-19 Vaccine Unknown Completed [facility] FLUZONE HIGH DOSE OVER 65 FLUZONE HIGH DOSE OVER 65 Unknown Completed [facility] Vital Signs Vital Name Observation Time Observation Value Comments S mendoza height 2023-04-22 14:20:00 60.25 [in_i] Com [facility] weight 2023-04-22 14:20:00 200.4 [lb_av] Co [facility] temperature 2023-04-22 14:20:00 98.4 [degF] Com [facility] bmi 2023-04-22 14:20:00 38.81 kg/m2 Comm on [facility] oximetry 2023-04-22 14:20:00 95 % Commo n [facility] respiratory rate 2023-04-22 14:20:00 16 /min [facility] blood pressure systolic 2023-04-22 14:20:00 138 mm[Hg] [facility] blood pressure diastolic 2023-04-22 14:20:00 72 mm[Hg] [facility] height 2023-01-20 14:40:00 60.25 [in_i] Com [facility] weight 2023-01-20 14:40:00 199.4 [lb_av] Co [facility] temperature 2023-01-20 14:40:00 97.3 [degF] Com [facility] bmi 2023-01-20 14:40:00 38.62 kg/m2 Comm on [facility] oximetry 2023-01-20 14:40:00 95 % Commo n [facility] respiratory rate 2023-01-20 14:40:00 16 /min [facility] blood pressure systolic 2023-01-20 14:40:00 131 mm[Hg] [facility] blood pressure diastolic 2023-01-20 14:40:00 63 mm[Hg] [facility] height 2022-10-21 14:40:00 60.25 [in_i] Com [facility] weight 2022-10-21 14:40:00 203.6 [lb_av] Co [facility] temperature 2022-10-21 14:40:00 97.2 [degF] Com [facility] bmi 2022-10-21 14:40:00 39.43 kg/m2 Comm on [facility] oximetry 2022-10-21 14:40:00 95 % Commo n [facility] respiratory rate 2022-10-21 14:40:00 16 /min [facility] blood pressure systolic 2022-10-21 14:40:00 120 mm[Hg] Common [facility] blood pressure diastolic 2022-10-21 14:40:00 58 mm[Hg] Common [facility] height 2022-07-21 16:00:00 60.25 [in_i] Com [facility] weight 2022-07-21 16:00:00 201.8 [lb_av] Co [facility] temperature 2022-07-21 16:00:00 97.7 [degF] Com [facility] bmi 2022-07-21 16:00:00 39.08 kg/m2 Comm on [facility] oximetry 2022-07-21 16:00:00 95 % Commo n [facility] respiratory rate 2022-07-21 16:00:00 18 /min Common [facility] blood pressure systolic 2022-07-21 16:00:00 136 mm[Hg] [facility] blood pressure diastolic 2022-07-21 16:00:00 74 mm[Hg] [facility] height 2022-07-21 14:40:00 60.25 [in_i] Com [facility] weight 2022-07-21 14:40:00 201.8 [lb_av] Co [facility] temperature 2022-07-21 14:40:00 97.7 [degF] Com [facility] bmi 2022-07-21 14:40:00 39.08 kg/m2 Comm on [facility] oximetry 2022-07-21 14:40:00 95 % Commo n [facility] respiratory rate 2022-07-21 14:40:00 18 /min [facility] blood pressure systolic 2022-07-21 14:40:00 140 mm[Hg] [facility] blood pressure diastolic 2022-07-21 14:40:00 76 mm[Hg] Common [facility] height 2022-04-03 13:00:00 60.25 [in_i] Com [facility] weight 2022-04-03 13:00:00 201.6 [lb_av] Co [facility] temperature 2022-04-03 13:00:00 98.8 [degF] Com [facility] bmi 2022-04-03 13:00:00 39.04 kg/m2 Comm on [facility] oximetry 2022-04-03 13:00:00 96 % Commo n [facility] respiratory rate 2022-04-03 13:00:00 17 /min [facility] blood pressure systolic 2022-04-03 13:00:00 132 mm[Hg] Common [facility] blood pressure diastolic 2022-04-03 13:00:00 76 mm[Hg] Common [facility] height 2021-12-31 14:40:00 60.25 [in_i] Com [facility] weight 2021-12-31 14:40:00 204.4 [lb_av] Co mmon [facility] temperature 2021-12-31 14:40:00 97.3 [degF] Com [facility] bmi 2021-12-31 14:40:00 39.58 kg/m2 Comm on [facility] oximetry 2021-12-31 14:40:00 96 % Commo n [facility] respiratory rate 2021-12-31 14:40:00 16 /min [facility] blood pressure systolic 2021-12-31 14:40:00 139 mm[Hg] Common [facility] blood pressure diastolic 2021-12-31 14:40:00 62 mm[Hg] [facility] height 2021-10-02 15:00:00 60.25 [in_i] Com [facility] weight 2021-10-02 15:00:00 203.4 [lb_av] Co mmon [facility] temperature 2021-10-02 15:00:00 97.5 [degF] Com [facility] bmi 2021-10-02 15:00:00 39.39 kg/m2 Comm on [facility] oximetry 2021-10-02 15:00:00 96 % Commo n [facility] respiratory rate 2021-10-02 15:00:00 18 /min [facility] blood pressure systolic 2021-10-02 15:00:00 136 mm[Hg] Common [facility] blood pressure diastolic 2021-10-02 15:00:00 74 mm[Hg] [facility] height 2021-07-03 14:40:00 60.25 [in_i] Com [facility] weight 2021-07-03 14:40:00 200 [lb_av] Comm on [facility] temperature 2021-07-03 14:40:00 98.2 [degF] Com [facility] bmi 2021-07-03 14:40:00 38.73 kg/m2 Comm on [facility] oximetry 2021-07-03 14:40:00 97 % Commo n [facility] respiratory rate 2021-07-03 14:40:00 16 /min Common [facility] blood pressure systolic 2021-07-03 14:40:00 126 mm[Hg] Common [facility] blood pressure diastolic 2021-07-03 14:40:00 64 mm[Hg] Common [facility] height 2021-04-03 09:00:00 60.25 [in_i] Com [facility] weight 2021-04-03 09:00:00 199.6 [lb_av] Co mmon [facility] temperature 2021-04-03 09:00:00 97.0 [degF] Com [facility] bmi 2021-04-03 09:00:00 38.65 kg/m2 Comm on [facility] oximetry 2021-04-03 09:00:00 95 % Commo n [facility] blood pressure systolic 2021-04-03 09:00:00 134 mm[Hg] [facility] pressure diastolic 2021-04-03 09:00:00 66 mm[Hg] [facility] height 2021-04-03 08:40:00 60.25 [in_i] Com [facility] weight 2021-04-03 08:40:00 199.6 [facility]lb[facility]av[facility] 08:40:00 97.0 [degF] Com mon [facility] bmi 2021-04-03 08:40:00 38.65 kg/m2 Comm on [facility] oximetry 2021-04-03 08:40:00 95 % Commo n [facility] respiratory rate 2021-04-03 08:40:00 16 /min [facility] blood pressure systolic 2021-04-03 08:40:00 134 mm[Hg] [facility] blood pressure diastolic 2021-04-03 08:40:00 66 mm[Hg] [facility] Encounters Start Date/Time End Date/Time Encounter Type Admission Type Attending [facility] Care Department Encounter ID Source 2023-01-20 14:44:00 Outpatient HollyYaz STLC STLC [id number] [facility] 2022-04-01 14:02:00 Outpatient HollyYaz STLC STLMLC [id number] [facility] 2021-07-03 15:24:01 Outpatient HollyYaz STODESSA STLMLC [id number] [facility] 2021-07-01 11:44:01 Outpatient WinklerYaz malone STLMLC STLMLC [id number] [facility] 2021-04-24 14:32:03 Outpatient HollyYaz STLMLC STLMLC [id number] [facility] 2021-04-24 14:31:15 Outpatient HollyYaz STLMLC STLMLC [id number] [facility] 2021-04-24 13:19:18 Outpatient Yaz BarreraLMLC STLMLC [id number] [facility] 2021-04-24 12:47:25 Outpatient Yaz Barrera STLC STLMLC [id number] [facility] 2021-04-24 12:21:45 Outpatient Yaz Barrera STMIKEYLC STLMLC [id number] [facility] 2021-04-24 12:15:04 Outpatient Yaz Barrera STODESSA STLMLC [id number] [facility] 2021-04-24 12:08:53 Outpatient Miguel A Alston STMIKEYLC STLMLC [id number] [facility] 2021-04-24 11:25:26 Outpatient Sofy Schwartz STMIKEYLC STLMLC [id number] [facility] 2021-04-24 11:24:53 Outpatient Sofy Schwartz STLMLC STLMLC [id number] [facility] 2021-04-24 11:06:43 Outpatient Sofy Schwartz STMIKEYLC STLMLC [id number] [facility] 2021-04-24 11:01:49 Outpatient Sofy Schwartz STMIKEYLC STLMLC [id number] [facility] 2021-04-24 11:00:30 Outpatient Sofy Schwartz STLMLC STLMLC [id number] [facility] 2023-05-21 00:00:00 2023-05-21 00:00:00 (TEL) STLMLC STLMLC [id number] [facility] 2023-05-12 00:00:00 2023-05-12 00:00:00 (TEL) STLMLC STLMLC [id number] [facility] 2023-04-22 00:00:00 2023-04-22 00:00:00 OFFICE VISIT ESTAB PT LEVEL 4 STLMLC STLMLC [id number] [facility] 2023-04-15 00:00:00 2023-04-15 00:00:00 (TEL) STLMLC STLMLC [id number] [facility] 2023-01-24 00:00:00 2023-01-24 00:00:00 Outpatient GC_GCBZW_Ka diyala_S PRIV PRIV [id number] [facility] 2023-01-24 00:00:00 2023-01-24 00:00:00 Outpatient GC_GCBZW_Ka ashleyyala_S PRIV PRIV [id number] [facility] 2023-01-20 00:00:00 2023-01-20 00:00:00 OFFICE VISIT ESTAB PT LEVEL 4 STLMLC STLMLC [id number] [facility] 2022-11-18 00:00:00 2022-11-18 00:00:00 (TEL) STLMLC STLMLC [id number] [facility] 2022-10-21 00:00:00 2022-10-21 00:00:00 OFFICE VISIT ESTAB PT LEVEL 4 STLMLC STLMLC [id number] [facility] 2022-08-01 00:00:00 2022-08-01 00:00:00 (TEL) STLMLC STLMLC [id number] [facility] 2022-07-21 00:00:00 2022-07-21 00:00:00 SUB ANNUAL MCR WELLNESS VISIT STLMLC STLMLC [id number] [facility] 2022-07-21 00:00:00 2022-07-21 00:00:00 OFFICE VISIT ESTAB PT LEVEL 3 STLMLC STLMLC [id number] [facility] 2022-06-05 00:00:00 2022-06-05 00:00:00 (TEL) STLMLC STLMLC [id number] [facility] 2022-04-03 00:00:00 2022-04-03 00:00:00 OFFICE VISIT EST PT LEVEL 3 STLMLC STLMLC [id number] [facility] 2021-12-31 00:00:00 2021-12-31 00:00:00 OFFICE VISIT EST PT LEVEL 3 STLMLC STLMLC [id number] [facility] 2021-10-02 00:00:00 2021-10-02 00:00:00 OFFICE VISIT EST PT LEVEL 3 STLMLC STLMLC [id number] [facility] 2021-07-03 00:00:00 2021-07-03 00:00:00 OFFICE VISIT EST PT LEVEL 3 STLMLC STLMLC [id number] [facility] 2021-04-03 00:00:00 2021-04-03 00:00:00 SUB ANNUAL [facility] WELLNESS VISIT STLMLC STLMLC [id number] [facility] 2021-04-03 00:00:00 2021-04-03 00:00:00 OFFICE VISIT ESTAB PT LEVEL 3 STLMLC STLMLC [id number] [facility] 2021-01-04 00:00:00 2021-01-04 00:00:00 (TEL) STLMLC STLMLC [id number] [facility] 2020-09-25 00:00:00 2020-09-25 00:00:00 Outpatient STLMLC STLMLC [id number] [facility] 2020-09-12 00:00:00 2020-09-12 00:00:00 Outpatient STLMLC STLMLC [id number] [facility] 2020-08-30 00:00:00 2020-08-30 00:00:00 Outpatient STLMLC STLMLC [id number] [facility] 2020-06-27 00:00:00 2020-06-27 00:00:00 Outpatient STLMLC STLMLC [id number] [facility] 2020-04-17 00:00:00 2020-04-17 00:00:00 Outpatient STLMLC STLMLC [id number] [facility] 2019-10-20 11:40:00 2019-10-20 11:40:00 Outpatient ROSANNE KHAN [facility] [id number] [facility] 2019-10-20 10:48:16 2019-10-20 10:57:29 Laboratory Only Lab, Adc Fam Pob I [facility] [address] [id number] 2019-10-20 10:48:16 2019-10-20 10:57:29 Laboratory Only [facility], [facility] [id number] [facility] 2019-09-26 08:51:00 2019-09-26 08:51:00 [facility] [id number] [facility] 2019-09-02 15:00:00 2019-09-02 15:00:00 [facility] [id number] [facility] 2019-08-31 14:01:00 2019-08-31 14:01:00 [facility] [id number] [facility] 2019-08-23 09:00:00 2019-08-23 09:00:00 [facility] [id number] [facility] 2019-06-02 15:00:00 2019-06-02 15:00:00 [facility] [id number] [facility] 2019-05-09 15:46:00 2019-05-09 15:46:00 [facility] [id number] [facility] 2019-05-04 14:45:00 2019-05-04 14:45:00 [facility] [id number] [facility] 2019-04-19 21:34:00 2019-04-19 21:34:00 [facility] [id number] [facility] 2019-04-19 21:21:00 2019-04-19 21:21:00 [facility] [id number] [facility] 2019-04-19 09:30:00 2019-04-19 09:30:00 [facility] [id number] [facility] 2019-02-15 08:00:00 2019-02-15 08:00:00 [facility] [place] [id number] [facility] 2019-02-10 13:48:00 2019-02-10 13:48:00 [facility] [id number] [facility] 2019-02-04 12:23:00 2019-02-04 12:23:00 [facility] [id number] [facility] 2019-02-02 14:40:00 2019-02-02 14:40:00 [facility] [id number] [facility] 2019-01-27 14:30:00 2019-01-27 14:30:00 [facility] [id number] [facility] 2019-01-12 09:00:00 2019-01-12 09:00:00 [facility] [id number] [facility]
--- NOTE | 2023-06-20 13:31 | EDPHYS ---
Physician Documentation [facility] Name: Cassy Stafford Age: 78 yrs Sex: Female : 1945 Arrival Date: 06/20/2023 Time: 11:55 Bed 19 Private MD: RICH CHAN ED Physician Jose Morel HPI: 06/19 12:15 This 78 yrs old Female presents to ER via Ambulatory with complaints of High jh7 Blood Pressure. 12:15 The patient has elevated blood pressure and discovered this at home, with a home jh7 device. Onset: The symptoms/episode began/occurred this morning. Associated signs and symptoms: Pertinent positives: headache. Severity of symptoms: At its worst the blood pressure was 200 mm Hg. Patient took her blood pressure immediately after taking her blood pressure medicine and she stated that her systolic BP was 200. She reported a headache at the time, but states that her symptoms have significantly improved now and rates her headache as a 1 out of 10. Denies chest pain, shortness of breath, dizziness, or syncope.. Historical: - Allergies: 12:21 No Known Allergies; ko1 - Home Meds: 12:21 carvedilol Oral [Active]; ko1 - PMHx: 12:21 breast cancer; Diabetes - NIDDM; Hyperlipidemia; Hypertension; ko1 - Immunization history:: Adult Immunizations up to date. - Social history:: Smoking status: Patient denies any tobacco usage or history of. ROS: 12:15 Constitutional: Negative for fever, chills, and weight loss, Neck: Negative for injury, jh7 pain, and swelling, Cardiovascular: Negative for chest pain, palpitations, and edema, Respiratory: Negative for shortness of breath, cough, wheezing, and pleuritic chest pain, Abdomen/GI: Negative for abdominal pain, nausea, vomiting, diarrhea, and constipation, MS/Extremity: Negative for injury and deformity, Skin: Negative for injury, rash, and discoloration, 12:15 Neuro: Positive for headache, Negative for altered mental status, dizziness, numbness, seizure activity, syncope, tingling, visual changes, weakness, 12:15 All other systems are negative, Exam: 12:15 Constitutional: This is a well developed, well nourished patient who is awake, alert, jh7 and in no acute distress. Head/Face: Normocephalic, atraumatic. Neck: Trachea midline, no thyromegaly or masses palpated, and no cervical lymphadenopathy. Supple, full range of motion without nuchal rigidity, or vertebral point tenderness. No Meningismus. Cardiovascular: Regular rate and rhythm with a normal S1 and S2. No gallops, murmurs, or rubs. Normal PMI, no JVD. No pulse deficits. Respiratory: Lungs have equal breath sounds bilaterally, clear to auscultation and percussion. No rales, rhonchi or wheezes noted. No increased work of breathing, no retractions or nasal flaring. Abdomen/GI: Soft, non-tender, with normal bowel sounds. No distension or tympany. No guarding or rebound. No evidence of tenderness throughout. Back: No spinal tenderness. No costovertebral tenderness. Full range of motion. Skin: Warm, dry with normal turgor. Normal color with no rashes, no lesions, and no evidence of cellulitis. MS/ Extremity: Pulses equal, no cyanosis. Neurovascular intact. Full, normal range of motion. Neuro: Awake and alert, GCS 15, oriented to person, place, time, and situation. Cranial nerves II-XII grossly intact. Motor strength 5/5 in all extremities. Sensory grossly intact. Cerebellar exam normal. Normal gait. Vital Signs: 12:15 BP 176 / 73; Pulse 61; Resp 15; Temp 98; Pulse Ox 98% on R/A; ko1 13:26 BP 170 / 59; Pulse 63; Resp 18; Pulse Ox 99% on R/A; Pain 2/10; tl4 13:52 BP 138 / 66; Pulse 64; Resp 18; Temp 98.3(O); Pulse Ox 97% on R/A; Pain 2/10; tl4 13:26 Pain Scale: Adult tl4 13:52 Pain Scale: Adult tl4 MDM: 12:19 Patient medically screened. [facility] 13:30 Differential diagnosis: hypertensive crisis, Malignant HTN. Data interpreted: Pulse [facility] oximetry: is 97 %. Interpretation: normal. Data reviewed: vital signs, nurses notes, EKG. I considered the following discharge prescriptions or medication management in the emergency department Medications were administered in the Emergency Department. See MAR. Independent interpretation of the following test(s) in the Emergency Department EKG: See my EKG interpretation above. Care significantly affected by the following chronic conditions: Diabetes, Hypertension. Counseling: I had a detailed discussion with the patient and/or guardian regarding the historical points, exam findings, and any diagnostic results supporting the discharge/admit diagnosis, to return to the emergency department if symptoms worsen or persist or if there are any questions or concerns that arise at home. Response to treatment: the patient's symptoms have resolved after treatment, the patient's blood pressure is in an acceptable range, the patient's pain is gone. 06/19 12:27 Order name: EKG - Nurse/Tech; Complete Time: : [facility] 06/19 12:27 Order name: Recheck Blood Pressure: \T\12:45; Complete Time: : jh7 EC:18 Rate is 55 beats/min. Rhythm is regular. QRS [place] is Normal. [place] interval is normal at jh7 130 msec. QRS interval is normal at 84 msec. QT interval is normal at 432 msec. No Q waves. T waves are Normal. No ST changes noted. Clinical impression: Sinus bradycardia. Administered Medications: 13:42 Drug: HydrALAZINE PO 25 mg PO once Route: PO; tl4 13:52 Follow up: Response: No adverse reaction tl4 Disposition Summary: 06/20/23 13:30 Discharge Ordered Notes: Location: Home [facility] Problem: chronic [facility] Symptoms: have improved [facility] Condition: Stable [facility] Diagnosis - Essential (primary) hypertension [facility] Followup: [facility] - With: RICH CHAN - When: 2 - 3 days - Reason: Recheck today's complaints Discharge Instructions: - Discharge Summary Sheet [facility] - Hypertension, Adult [facility] - DASH Eating Plan [facility] - Managing Your Hypertension [facility] Forms: - Medication Reconciliation Form [facility] - Thank You Letter [facility] - Patient Portal Instructions [facility] - Leadership Thank You Letter [facility] Signatures: Basilia Peterson FNP FNP [facility] Mary Fernandez RN RN ko1 Richard Montenegro RN RN tl4
--- NOTE | 2023-06-20 13:31 | ER ---
Nurse's Notes [facility] Name: aCssy Stafford Age: 78 yrs Sex: Female : 1945 Arrival Date: 06/20/2023 Time: 11:55 Bed 19 Private MD: RICH CHAN Diagnosis: Essential (primary) hypertension Presentation: 06/19 12:15 Chief complaint: Patient states: woke up this morning with headache, blood pressure ko1 keeps fluctuating, took meds this morning about 930. christopher said it was over 200. Coronavirus screen: At this time, the client does not indicate any symptoms associated with coronavirus-19. Ebola Screen: No symptoms or risks identified at this time. Initial Sepsis Screen: Does the patient meet any 2 criteria? No. Patient's initial sepsis screen is negative. Does the patient have a suspected source of infection? No. Patient's initial sepsis screen is negative. Risk Assessment: Do you want to hurt yourself or someone else? Patient reports no desire to harm self or others. Onset of symptoms was June 20, 2023. 12:15 Method Of Arrival: Ambulatory ko1 12:15 Acuity: ONEIL 3 ko1 Triage Assessment: 12:21 General: Appears in no apparent distress. Behavior is calm, cooperative, appropriate ko1 for age. Pain: Denies pain. Historical: - Allergies: 12:21 No Known Allergies; ko1 - Home Meds: 12:21 carvedilol Oral [Active]; ko1 - PMHx: 12:21 breast cancer; Diabetes - NIDDM; Hyperlipidemia; Hypertension; ko1 - Immunization history:: Adult Immunizations up to date. - Social history:: Smoking status: Patient denies any tobacco usage or history of. Screenin:29 [facility] ED Fall Risk Assessment (Adult) History of falling in the last 3 months, tl4 including since admission No falls in past 3 months (0 pts) Confusion or Disorientation No (0 pts) Intoxicated or Sedated No (0 pts) Impaired Gait No (0 pts) Mobility Assist Device Used No (0 pt) Altered Elimination No (0 pt) Score/Fall Risk Level 0 - 2 = Low Risk Oriented to surroundings, Maintained a safe environment, Educated pt \T\ family on fall prevention, incl call for assistance when getting out of bed, Assessed \T\ reinforced patient's understanding of fall precautions, Hourly rounding (assess needs \T\ fall precautionary measures) done, Used ambulatory aids as needed (educated on \T\ assisted with), Used gait belt as appropriate. Abuse screen: Denies threats or abuse. Denies injuries from another. Nutritional screening: No deficits noted. Tuberculosis screening: No symptoms or risk factors identified. Assessment: 13:27 General: Appears in no apparent distress. Behavior is calm, cooperative. Pain: tl4 Complains of pain in head. Neuro: Level of Consciousness is awake, alert, obeys commands, Oriented to person, place, time, situation, Manager Of Selection And Assessment are equal bilaterally Moves all extremities. Gait is steady, Speech is normal, Facial symmetry appears normal, Reports headache Denies weakness blurred vision difficulty swallowing, paresthesias numbness. Cardiovascular: Denies chest pain, palpitations, Capillary refill < 3 seconds Patient's skin is warm and dry. Respiratory: Airway is patent Respiratory effort is even, unlabored, Respiratory pattern is regular, symmetrical, Breath sounds are clear bilaterally. Denies cough, shortness of breath. GI: No deficits noted. No signs and/or symptoms were reported involving the gastrointestinal system. : No deficits noted. No signs and/or symptoms were reported regarding the genitourinary system. EENT: No deficits noted. No signs and/or symptoms were reported regarding the EENT system. Derm: No deficits noted. No signs and/or symptoms reported regarding the dermatologic system. Musculoskeletal: No deficits noted. No signs and/or symptoms reported regarding the musculoskeletal system. 13:51 Reassessment: No changes from previously documented assessment. Patient and/or family tl4 updated on plan of care and expected duration. Pain level reassessed. Patient is alert, oriented x 3, equal unlabored respirations, skin warm/dry/pink. Patient states feeling better. Vital Signs: 12:15 BP 176 / 73; Pulse 61; Resp 15; Temp 98; Pulse Ox 98% on R/A; ko1 13:26 BP 170 / 59; Pulse 63; Resp 18; Pulse Ox 99% on R/A; Pain 2/10; tl4 13:52 BP 138 / 66; Pulse 64; Resp 18; Temp 98.3(O); Pulse Ox 97% on R/A; Pain 2/10; tl4 13:26 Pain Scale: Adult tl4 13:52 Pain Scale: Adult tl4 ED Course: 11:56 Patient arrived in ED. rg4 11:57 RICH CHAN is Private Physician. rg4 12:18 [facility] jh7 12:18 Jose Morel MD is Attending Physician. jh7 12:21 Triage completed. ko1 12:21 Arm band placed on right wrist. Patient placed in an exam room, on a stretcher, on ko1 plate finisher, on pulse oximetry, Patient notified of wait time. 12:37 Richard Montenegro, RN is Primary Nurse. tl4 13:26 EKG done, by ED staff, reviewed by Basilia DIAZ. tl4 13:29 Patient has correct armband on for positive identification. Placed in gown. Bed in low tl4 position. Call light in reach. Side rails up X 1. Provided Education on: ED process. Client placed on continuous cardiac and pulse oximetry monitoring. NIBP monitoring applied. Door closed. Noise minimized. Moved to private room. Warm blanket given. 13:30 RICH CHAN is Referral Physician. jh7 13:30 No provider procedures requiring assistance completed. Patient did not have IV access tl4 during this emergency room visit. Administered Medications: 13:42 Drug: HydrALAZINE PO 25 mg PO once Route: PO; tl4 13:52 Follow up: Response: No adverse reaction tl4 Medication: 13:28 VIS not applicable for this client. tl4 Outcome: 13:30 Discharge ordered by . 7 13:55 Discharged to home ambulatory, tl4 13:55 Condition: good 13:55 Discharge instructions given to patient, Instructed on discharge instructions, follow up and referral plans. medication usage, wound care, Demonstrated understanding of instructions, follow-up care, medications, wound care, Prescriptions given X 1, 13:56 Patient left the ED. tl4 Signatures: Julia Dominguez rg4 Basilia Peterson FNP FNP [facility] Mary Fernandez, RN RN ko1 Richard Montenegro, EDGARD RN tl4
[2023-06-20 14:05] VITALS: BP 138/66; TEMP 98.3; O2SAT 97
--- NOTE | 2023-06-22 14:21 | EKG ---
Test Date: 2023-06-20 Test Time: 12:18:17 Ergonomics Engineer: TL MEASUREMENT RESULTS: Intervals: Rate: 55 LA: 138 QRSD: 84 QT: 432 QTc: 413 [place]: P: 25 LA: 138 QRS: -6 T: 48 INTERPRETIVE STATEMENTS: Sinus bradycardia with sinus arrhythmia Otherwise normal ECG Compared to ECG 10/03/2017 01:17:31 Sinus rhythm no longer present Electronically Signed On 06-22-23 14:15:07 CDT by Otis Colin
== END ==
LOC: ER 11:55
DX: I10 Essential (primary) hypertension (principal)
CPT/HCPCS: 93005; 99284

== ENCOUNTER 2023-08-04 10:43 | Emergency (ER) | payer OTHER ==
--- OUTSIDE RECORDS SUMMARY | 2023-08-04 10:47 | XMS REPORT | Continuity of Care Document ---
Author Name Unknown Address [address] [facility] [address] [place] [address] [facility] thconnect Address [address] [facility] [address] [place] [address] Care Team Providers Care Laser Beam Color Scanner Operator Name Role Phone CharitonYaz malone Attending Clinician Unavailable Miguel A Alston Attending Clinician Unavailable Sofy Schwartz Attending Clinician Unavailable [email or web address] Attending Clinician Unavaila ROSANNE Landers Attending Clinician Unavailable Lab, Adc Fam Pob I Attending Clinician Unavailab luciana Mendez SPLICING MACHINE OPERATOR AUTOMATICRosanne Attending Clinician [phone] [email or web address] Admitting Clinician Unavaila mary jo Payers Payer Name Policy Type Policy Number Effective Date Expirati on Date Source [facility] [employer] TRS/ERS MCR PPO 1 [id number] 2021 00:00:00 [facility] [employer] MEDICARE ERS [id number] 2016 00:00:00 Problems Condition Name Condition Details Condition Category Status Onset Date Resolution Date Last Treatment Date Treating Clinician Comments Source Age related osteoporos is Age related osteoporos is Problem [facility] Obesity Obesity, unspecifie d Problem [facility] [id number] Osteopenia of neck of left femur Problem [facility] Age-relate d osteoporos is Age-relate d osteoporos is without current pathologic al fracture Problem [facility] [id number] Thinning hair Problem [facility] [id number] Obesity (BMI 30-39.9) Problem [facility] [id number] Hypertensi on, unspecifie d type Problem [facility] [id number] History of breast cancer Problem [facility] [id number] Hyperchole sterolemia Problem [facility] [id number] Abnormal renal function test Problem [facility] [id number] Status post fall Problem [facility] [id number] Fatigue, unspecifie d type Problem [facility] [id number] 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 Problem [facility] [id number] S/P lumpectomy , left breast Problem [facility] [id number] Other chronic pain Problem [facility] [id number] Primary osteoarthr itis of right knee Problem [facility] [id number] Adverse effect of other vaccines and biological substances , initial encounter Problem [facility] Malignant neoplasm of lower-oute r quadrant of female breast Malignant neoplasm of lower-oute r quadrant of left female breast Problem [facility] Allergies, Adverse Reactions, Alerts Allergy Name Allergy Type Status Severity Reaction(s) Onset Date Inactive Date Treating Clinician Comments Source NO KNOWN ALLERGIE S Drug Class Active [facility] tirzepat lisa tirzepat lisa Active constipation [facility] enalapri l enalapri l Active cough [facility] metformi n metformi n Active diarrhea [facility] empaglif lozin empaglif lozin Active weak [facility] meloxica m meloxica m Active Lip swelling/num bness + numbness of fingertips of right hand [facility] Social History Social Habit Start Date Stop Date Quantity Comments Source History of Tobacco Use [facility] Sex Assigned At [facility] Smoking Status Start Date Stop Date Source Never Smoker [facility] Unknown if ever smoked [facility] Medications Ordered Medication Name Filled Medication Name [...] Mounjaro 2.5 MG/0.5ML Mounjaro 2.5 MG/0.5ML 2023-0 7-25 00:00: 00 No .5{ml} Mounjaro 2.5 MG/0.5ML Meloxicam Meloxicam 08-22 00:00: 00 09-21 00:00 :00 No Sofy Mccabeender 1 tablet [facility] Bupivicaine Meservey Bupivicaine Meservey 2019-0 3-05 00:00: 00 No 4mL [facility] Kenalog (Triamcinol one) Kenalog (Triamcinol one) 0 3-05 00:00: 00 No 40mg [facility] Bupivicaine Meservey Bupivicaine Meservey 2019-0 3- 00:00: 00 No 4mL [facility] Kenalog (Triamcinol one) Kenalog (Triamcinol one) 0 3-05 00:00: 00 No 40mg [facility] Bupivicaine Meservey Bupivicaine Meservey 2019-0 3-05 00:00: 00 No 4mL [facility] Kenalog (Triamcinol one) Kenalog (Triamcinol one) 0 3-05 00:00: 00 No 40mg [facility] Bupivicaine Meservey Bupivicaine Meservey 2019-0 3-05 00:00: 00 No 4mL [facility] Kenalog (Triamcinol one) Kenalog (Triamcinol one) 0 3-05 00:00: 00 No 40mg [facility] Bupivicaine Meservey Bupivicaine Meservey 2019-0 3-05 00:00: 00 No 4mL [facility] Kenalog (Triamcinol one) Kenalog (Triamcinol one) 0 3-05 00:00: 00 No 40mg [facility] Bupivicaine Meservey Bupivicaine Meservey 2019-0 3-05 00:00: 00 No 4mL [facility] Kenalog (Triamcinol one) Kenalog (Triamcinol one) 2020-0 3-05 00:00: 00 No 40mg [facility] Kenalog (Triamcinol one) Kenalog (Triamcinol one) 2019-0 3-05 00:00: 00 No 40mg [facility] Bupivicaine Meservey Bupivicaine Meservey 2020-0 3-05 00:00: 00 No 4mL [facility] Bupivicaine Meservey Bupivicaine Meservey 2019-0 3-05 00:00: 00 No 4mL [facility] Kenalog (Triamcinol one) Kenalog (Triamcinol one) 2019-0 3-05 00:00: 00 No 40mg [facility] Bupivicaine Meservey Bupivicaine Meservey 2019-0 3-05 00:00: 00 No 4mL [facility] Kenalog (Triamcinol one) Kenalog (Triamcinol one) 2019-0 3-05 00:00: 00 No 40mg [facility] Bupivicaine Meservey Bupivicaine Meservey 2019-0 3-05 00:00: 00 No 4mL [facility] Kenalog (Triamcinol one) Kenalog (Triamcinol one) 2019-0 3-05 00:00: 00 No 40mg [facility] Bupivicaine Meservey Bupivicaine Meservey 2019-0 3-05 00:00: 00 No 4mL [facility] Kenalog (Triamcinol one) Kenalog (Triamcinol one) 2019-0 3-05 00:00: 00 No 40mg [facility] Bupivicaine Meservey Bupivicaine Meservey 2020-0 3-05 00:00: 00 No 4mL [facility] Kenalog (Triamcinol one) Kenalog (Triamcinol one) 2019-0 3-05 00:00: 00 No 40mg [facility] Bupivicaine Meservey Bupivicaine Meservey 2020-0 3-05 00:00: 00 No 4mL [facility] Kenalog (Triamcinol one) Kenalog (Triamcinol one) 2019-0 3-05 00:00: 00 No 40mg [facility] Bupivicaine Meservey Bupivicaine Meservey 2019-0 3-05 00:00: 00 No 4mL [facility] Kenalog (Triamcinol one) Kenalog (Triamcinol one) 2019-0 3-05 00:00: 00 No 40mg [facility] Bupivicaine Meservey Bupivicaine Meservey 2019-0 3-05 00:00: 00 No 4mL [facility] Kenalog (Triamcinol one) Kenalog (Triamcinol one) 2019-0 3-05 00:00: 00 No 40mg [facility] Solumedrol 125mg/2ml Solumedrol 125mg/2ml 0 2-05 00:00: 00 No 125mg [facility] Solumedrol 125mg/2ml Solumedrol 125mg/2ml 0 2-05 00:00: 00 No 125mg [facility] Solumedrol 125mg/2ml Solumedrol 125mg/2ml 2019-0 2-05 00:00: 00 No 125mg [facility] Solumedrol 125mg/2ml Solumedrol 125mg/2ml 2019-0 2-05 00:00: 00 No 125mg [facility] Solumedrol 125mg/2ml Solumedrol 125mg/2ml 2019-0 2-05 00:00: 00 No 125mg [facility] Solumedrol 125mg/2ml Solumedrol 125mg/2ml 2019-0 2-05 00:00: 00 No 125mg [facility] Solumedrol 125mg/2ml Solumedrol 125mg/2ml 2019-0 2-05 00:00: 00 No 125mg [facility] Solumedrol 125mg/2ml Solumedrol 125mg/2ml 2019-0 2-05 00:00: 00 No 125mg [facility] Solumedrol 125mg/2ml Solumedrol 125mg/2ml 0 2-05 00:00: 00 No 125mg [facility] Solumedrol 125mg/2ml Solumedrol 125mg/2ml 0 2-05 00:00: 00 No 125mg [facility] Solumedrol 125mg/2ml Solumedrol 125mg/2ml 0 2-05 00:00: 00 No 125mg [facility] Solumedrol 125mg/2ml Solumedrol 125mg/2ml 0 2-05 00:00: 00 No 125mg [facility] Solumedrol 125mg/2ml Solumedrol 125mg/2ml 0 2- 00:00: 00 No 125mg [facility] Solumedrol 125mg/2ml Solumedrol 125mg/2ml 0 2 00:00: 00 No 125mg [facility] Solumedrol 125mg/2ml Solumedrol 125mg/2ml 0 05 00:00: 00 No 125mg [facility] True Metrix Blood Glucose Test True Metrix Blood Glucose Test 12-20 00:00: 00 Yes Sofy Schwartz as directed [facility] Lancets Lancets 12-20 00:00: 00 Yes Sofy Schwartz as directed [facility] Blood Glucose Monitor System Blood Glucose Monitor System 12-16 00:00: 00 Yes Sofy Mccabeender as directed [facility] blood glucose test strip blood glucose test strip 12-16 00:00: 00 09-11 00:00 :00 No Sofy Mccabeender as directed [facility] Losartan Potassium Losartan Potassium 11-24 00:00: 00 Yes Sofy Schwartz 1 tablet [facility] FreeStyle Dennis 14 Day [place] FreeStyle Dennis 14 Day [place] 10-26 00:00: 00 Yes Sofy Mccabecookie as directed [facility] FreeStyle Dennis 14 Day [place] - FreeStyle [place] 14 Day [place] - 0 10-26 00:00: 00 No FreeStyle [place] 14 Day [place] - FreeStyle Dennis 14 Day [place] - FreeStyle Dennis 14 Day [place] - 0 10-26 00:00: 00 No FreeStyle [place] 14 Day [place] - FreeStyle Dennis 14 Day [place] - FreeStyle Dennis 14 Day [place] - 0 10-26 00:00: 00 No FreeStyle [place] 14 Day [place] - FreeStyle Dennis 14 Day [place] - FreeStyle Dennis 14 Day [place] - 0 10-26 00:00: 00 No FreeStyle [place] 14 Day [place] - FreeStyle Dennis 14 Day [place] - FreeStyle Dennis 14 Day [place] - 0 10-26 00:00: 00 No FreeStyle [place] 14 Day [place] - FreeStyle Dennis 14 Day [place] - FreeStyle Dennis 14 Day [place] - 0 10-26 00:00: 00 No FreeStyle [place] 14 Day [place] - FreeStyle Dennis 14 Day [place] - FreeStyle Dennis 14 Day [place] - 0 10-26 00:00: 00 No FreeStyle [place] 14 Day [place] - FreeStyle Dennis 14 Day [place] - FreeStyle Dennis 14 Day [place] - 0 10-26 00:00: 00 No FreeStyle [place] 14 Day [place] - FreeStyle Dennis 14 Day [place] - FreeStyle Dennis 14 Day [place] - 0 10-26 00:00: 00 No FreeStyle [place] 14 Day [place] - FreeStyle Dennis 14 Day [place] - FreeStyle Dennis 14 Day [place] - 0 10-26 00:00: 00 No FreeStyle [place] 14 Day [place] - FreeStyle Dennis 14 Day [place] - FreeStyle Dennis 14 Day [place] - 0 10-26 00:00: 00 No FreeStyle [place] 14 [place] - carvedilol (COREG) 6.25 mg tablet 2016-03 21:19: 44 Yes 6.25mg Take 6.25 mg by mouth 2 (two) times daily with meals. [facility] Cranberry Cranberry Yes Sofy Millender as directed [facility] Enalapril Maleate Enalapril Maleate Yes Sofy Millender not defined [facility] Tramadol HCl Tramadol HCl Yes Sofy Mccabeender (Schedule IV Drug) [facility] Vitamin D3 Vitamin D3 Yes Sofy Millender 1 tablet [facility] Nyamyc Nyamyc Yes Sofy Millender not defined [facility] Carvedilol Carvedilol Yes Sofy Millender 1 tablet [facility] [place] 3 [place] 3 Yes Sofy Millender not defined [facility] Letrozole Letrozole Yes Sofy Millender 1 tablet [facility] Paroxetine HCl Paroxetine HCl Yes Sofy Millender 1 tablet in the morning [facility] Metformin HCl Metformin HCl Yes Sofy Millender not defined [facility] Jardiance Jardiance Yes Sofy Millender not defined [facility] Ondansetron Ondansetron Yes Sofy Millender not defined [facility] Dicyclomine HCl Dicyclomine HCl Yes Sofy Mccabeender not defined [facility] Vitamin D3 2000 UNIT Vitamin D3 2000 [...] No 1{table t} QD Letrozole 2.5 MG Carvedilol 12.5 MG Carvedilol 12.5 MG No 1{table t} BID Carvedilol 12.5 MG Carvedilol 12.5 MG Carvedilol 12.5 MG No Carvedilol 12.5 MG Vitamin D3 2000 UNIT Vitamin D3 2000 UNIT No 1{table t} QD Vitamin D3 2000 UNIT Cranberry 400 MG Cranberry 400 MG No [...] 1{table t} QD Vitamin D3 1999 UNIT Vitamin D3 1999 UNIT Vitamin D3 2000 [...] 1{table t_with_ food} BID Carvedilol 12.5 MG Stool Softener Stool Softener No Stool Softener Cranberry 400 MG Cranberry 400 MG No Cranberry 400 MG Carvedilol 12.5 MG Carvedilol 12.5 MG No Carvedilol 12.5 MG Tradjenta 5 MG Tradjenta 5 MG No QD Tradjenta 5 MG Tradjenta 5 MG Tradjenta 5 MG No QD Tradjenta 5 MG Vitamin D3 2000 [...] (PCV20) Prevnar 20 (PCV20) 2022-07-21 16:07:00 Completed [facility] FLUZONE HIGH DOSE OVER 65 FLUZONE HIGH DOSE OVER 65 2020-12-26 14:10:00 Completed [facility] FLUZONE HIGH DOSE OVER 65 FLUZONE HIGH DOSE OVER 65 2020-12-26 14:10:00 Completed [facility] FLUZONE HIGH DOSE OVER 65 FLUZONE HIGH DOSE OVER 65 2020-12-26 14:10:00 Completed [facility] FLUZONE HIGH DOSE OVER 65 FLUZONE HIGH DOSE OVER 65 2020-12-26 14:10:00 Completed [facility] FLUZONE HIGH DOSE OVER 65 FLUZONE HIGH DOSE OVER 65 2020-12-26 14:10:00 Completed [facility] FLUZONE HIGH DOSE OVER 65 FLUZONE HIGH DOSE OVER 65 2020-12-26 14:10:00 Completed [facility] FLUZONE HIGH DOSE OVER 65 FLUZONE HIGH DOSE OVER 65 2020-12-26 14:10:00 Completed [facility] FLUZONE HIGH DOSE OVER 65 FLUZONE HIGH DOSE OVER 65 2020-12-26 14:10:00 Completed [facility] Moderna COVID-19 Vaccine Moderna COVID-19 Vaccine 2020-05-03 14:12:00 Completed [facility] Moderna COVID-19 Vaccine Moderna COVID-19 Vaccine 2020-05-03 13:30:00 Completed [facility] Moderna COVID-19 Vaccine Moderna COVID-19 Vaccine 2020-05-03 13:30:00 Completed [facility] Moderna COVID-19 Vaccine Moderna COVID-19 Vaccine 2020-05-03 13:30:00 Completed [facility] Moderna COVID-19 Vaccine Moderna COVID-19 Vaccine 2020-05-03 13:30:00 Completed [facility] Moderna COVID-19 Vaccine Moderna COVID-19 Vaccine 2020-05-03 13:30:00 Completed [facility] Moderna COVID-19 Vaccine Moderna COVID-19 Vaccine 2020-05-03 13:30:00 Completed [facility] Moderna COVID-19 Vaccine Moderna COVID-19 Vaccine 2020-05-03 13:30:00 Completed [facility] Moderna COVID-19 Vaccine Moderna COVID-19 Vaccine 2020-05-03 13:30:00 Completed [facility] Moderna COVID-19 Vaccine Moderna COVID-19 Vaccine 2020-04-05 14:11:00 Completed [facility] Moderna COVID-19 Vaccine Moderna COVID-19 Vaccine 2020-04-05 13:39:00 Completed [facility] Moderna COVID-19 Vaccine Moderna COVID-19 Vaccine 2020-04-05 13:39:00 Completed [facility] Moderna COVID-19 Vaccine Moderna COVID-19 Vaccine 2020-04-05 13:39:00 Completed [facility] Moderna COVID-19 Vaccine Moderna COVID-19 Vaccine 2020-04-05 13:39:00 Completed [facility] Moderna COVID-19 Vaccine Moderna COVID-19 Vaccine 2020-04-05 13:39:00 Completed [facility] Moderna COVID-19 Vaccine Moderna COVID-19 Vaccine 2020-04-05 13:39:00 Completed [facility] Moderna COVID-19 Vaccine Moderna COVID-19 Vaccine 2020-04-05 13:39:00 Completed [facility] Moderna COVID-19 Vaccine Moderna COVID-19 Vaccine 2020-04-05 13:39:00 Completed [facility] Kenalog (Triamcinolone) Kenalog (Triamcinolone) 2019-06-02 16:10:00 Completed [facility] Bupivicaine Meservey Bupivicaine Meservey 2019-06-02 16:09:00 Completed [facility] Solumedrol 125mg/2ml Solumedrol 125mg/2ml 2019-05-04 16:01:00 Completed [facility] Prevnar 20 (PCV20) Prevnar 20 (PCV20) Unknown Completed [facility] FluAD Quad SD FluAD Quad SD Unknown Completed [facility] Moderna COVID-19 Vaccine Moderna COVID-19 Vaccine Unknown Completed [facility] Moderna COVID-19 Vaccine Moderna COVID-19 Vaccine Unknown Completed [facility] FLUZONE HIGH DOSE OVER 65 FLUZONE HIGH DOSE OVER 65 Unknown Completed [facility] Prevnar 20 (PCV20) Prevnar 20 (PCV20) Unknown Completed [facility] FluAD Quad SD FluAD Quad SD Unknown Completed [facility] Moderna COVID-19 Vaccine Moderna COVID-19 Vaccine Unknown Completed [facility] Moderna COVID-19 Vaccine Moderna COVID-19 Vaccine Unknown Completed [facility] FLUZONE HIGH DOSE OVER 65 FLUZONE HIGH DOSE OVER 65 Unknown Completed [facility] Prevnar 20 (PCV20) Prevnar 20 (PCV20) Unknown Completed [facility] FluAD Quad SD FluAD Quad SD Unknown Completed [facility] Moderna COVID-19 Vaccine Moderna COVID-19 Vaccine Unknown Completed [facility] Moderna COVID-19 Vaccine Moderna COVID-19 Vaccine Unknown Completed [facility] FLUZONE HIGH DOSE OVER 65 FLUZONE HIGH DOSE OVER 65 Unknown Completed [facility] Moderna COVID-19 Vaccine Moderna COVID-19 Vaccine Unknown Completed [facility] Prevnar 20 (PCV20) Prevnar 20 (PCV20) Unknown Completed [facility] FluAD Quad SD FluAD Quad SD Unknown Completed [facility] Moderna COVID-19 Vaccine Moderna COVID-19 Vaccine Unknown Completed [facility] FLUZONE HIGH DOSE OVER 65 FLUZONE HIGH DOSE OVER 65 Unknown Completed [facility] Prevnar 20 (PCV20) Prevnar 20 (PCV20) Unknown Completed [facility] FluAD Quad SD FluAD Quad SD Unknown Completed [facility] Vaccine Moderna COVID-19 Vaccine Unknown Completed [facility] Moderna COVID-19 Vaccine Moderna COVID-19 Vaccine Unknown Completed [facility] FLUZONE HIGH DOSE OVER 65 FLUZONE HIGH DOSE OVER 65 Unknown Completed [facility] Prevnar 20 (PCV20) Prevnar 20 (PCV20) Unknown Completed [facility] Fluad (aIIV4) - SDS - 0.5mL Fluad (aIIV4) - SDS - 0.5mL Unknown Completed [facility] Moderna COVID-19 Vaccine Moderna COVID-19 Vaccine Unknown Completed [facility] Moderna COVID-19 Vaccine Moderna COVID-19 Vaccine Unknown Completed [facility] FLUZONE HIGH DOSE OVER 65 FLUZONE HIGH DOSE OVER 65 Unknown Completed [facility] Prevnar 20 (PCV20) Prevnar 20 (PCV20) Unknown Completed [facility] Fluad (aIIV4) - SDS - 0.5mL Fluad (aIIV4) - SDS - 0.5mL Unknown Completed [facility] Moderna COVID-19 Vaccine Moderna COVID-19 Vaccine Unknown Completed [facility] Moderna COVID-19 Vaccine Moderna COVID-19 Vaccine Unknown Completed [facility] FLUZONE HIGH DOSE OVER 65 FLUZONE HIGH DOSE OVER 65 Unknown Completed [facility] Prevnar 20 (PCV20) Prevnar 20 (PCV20) Unknown Completed [facility] Fluad (aIIV4) - SDS - 0.5mL Fluad (aIIV4) - SDS - 0.5mL Unknown Completed [facility] Moderna COVID-19 Vaccine Moderna COVID-19 Vaccine Unknown Completed [facility] Moderna COVID-19 Vaccine Moderna COVID-19 Vaccine Unknown Completed [facility] FLUZONE HIGH DOSE OVER 65 FLUZONE HIGH DOSE OVER 65 Unknown Completed [facility] Prevnar 20 (PCV20) Prevnar 20 (PCV20) Unknown Completed [facility] Fluad (aIIV4) - SDS - 0.5mL Fluad (aIIV4) - SDS - 0.5mL Unknown Completed [facility] Moderna COVID-19 Vaccine Moderna COVID-19 Vaccine Unknown Completed [facility] Moderna COVID-19 Vaccine Moderna COVID-19 Vaccine Unknown Completed [facility] FLUZONE HIGH DOSE OVER 65 FLUZONE HIGH DOSE OVER 65 Unknown Completed [facility] Prevnar 20 (PCV20) Prevnar 20 (PCV20) Unknown Completed [facility] Fluad (aIIV4) - SDS - 0.5mL Fluad (aIIV4) - SDS - 0.5mL Unknown Completed [facility] Moderna COVID-19 Vaccine Moderna COVID-19 Vaccine Unknown Completed [facility] Moderna COVID-19 Vaccine Moderna COVID-19 Vaccine Unknown Completed [facility] FLUZONE HIGH DOSE OVER 65 FLUZONE HIGH DOSE OVER 65 Unknown Completed [facility] Prevnar 20 (PCV20) Prevnar 20 (PCV20) Unknown Completed [facility] Fluad (aIIV4) - SDS - 0.5mL Fluad (aIIV4) - SDS - 0.5mL Unknown [facility] Moderna COVID-19 Vaccine Unknown Completed [facility] Moderna COVID-19 Vaccine Moderna COVID-19 Vaccine Unknown Completed [facility] FLUZONE HIGH DOSE OVER 65 FLUZONE HIGH DOSE OVER 65 Unknown Completed [facility] Vital Signs Vital Name Observation Time Observation Value Comments S jacquice height 2023-04-22 14:20:00 60.25 [in_i] Com [facility] weight 2023-04-22 14:20:00 200.4 [lb_av] Co [facility] temperature 2023-04-22 14:20:00 98.4 [degF] Com [facility] bmi 2023-04-22 14:20:00 38.81 kg/m2 Comm on [facility] oximetry 2023-04-22 14:20:00 95 % Commo n [facility] respiratory rate 2023-04-22 14:20:00 16 /min [facility] blood pressure systolic 2023-04-22 14:20:00 138 mm[Hg] [facility] blood pressure diastolic 2023-04-22 14:20:00 72 mm[Hg] [facility] height 2023-01-20 14:40:00 60.25 [in_i] Com [facility] weight 2023-01-20 14:40:00 199.4 [lb_av] Co [facility] temperature 2023-01-20 14:40:00 97.3 [degF] Com [facility] bmi 2023-01-20 14:40:00 38.62 kg/m2 Comm on [facility] oximetry 2023-01-20 14:40:00 95 % Commo n [facility] respiratory rate 2023-01-20 14:40:00 16 /min Common [facility] blood pressure systolic 2023-01-20 14:40:00 131 mm[Hg] [facility] blood pressure diastolic 2023-01-20 14:40:00 63 mm[Hg] [facility] height 2022-10-21 14:40:00 60.25 [in_i] Com [facility] weight 2022-10-21 14:40:00 203.6 [lb_av] Co mmon [facility] temperature 2022-10-21 14:40:00 97.2 [degF] Com [facility] bmi 2022-10-21 14:40:00 39.43 kg/m2 Comm on [facility] oximetry 2022-10-21 14:40:00 95 % Commo n [facility] respiratory rate 2022-10-21 14:40:00 16 /min [facility] blood pressure systolic 2022-10-21 14:40:00 120 mm[Hg] [facility] blood pressure diastolic 2022-10-21 14:40:00 58 mm[Hg] Common [facility] height 2022-07-21 16:00:00 60.25 [in_i] Com [facility] weight 2022-07-21 16:00:00 201.8 [lb_av] Co mmon [facility] temperature 2022-07-21 16:00:00 97.7 [degF] Com [facility] bmi 2022-07-21 16:00:00 39.08 kg/m2 Comm on [facility] oximetry 2022-07-21 16:00:00 95 % Commo n [facility] respiratory rate 2022-07-21 16:00:00 18 /min [facility] blood pressure systolic 2022-07-21 16:00:00 136 mm[Hg] Common [facility] blood pressure diastolic 2022-07-21 16:00:00 74 mm[Hg] Common [facility] height 2022-07-21 14:40:00 60.25 [in_i] Com [facility] weight 2022-07-21 14:40:00 201.8 [lb_av] Co mmon [facility] temperature 2022-07-21 14:40:00 97.7 [degF] Com [facility] bmi 2022-07-21 14:40:00 39.08 kg/m2 Comm on [facility] oximetry 2022-07-21 14:40:00 95 % Commo n [facility] respiratory rate 2022-07-21 14:40:00 18 /min [facility] blood pressure systolic 2022-07-21 14:40:00 140 mm[Hg] [facility] blood pressure diastolic 2022-07-21 14:40:00 76 mm[Hg] [facility] height 2022-04-03 13:00:00 60.25 [in_i] Com [facility] weight 2022-04-03 13:00:00 201.6 [lb_av] Co mmon [facility] temperature 2022-04-03 13:00:00 98.8 [degF] Com [facility] bmi 2022-04-03 13:00:00 39.04 kg/m2 Comm on [facility] oximetry 2022-04-03 13:00:00 96 % Commo n [facility] respiratory rate 2022-04-03 13:00:00 17 /min Common [facility] blood pressure systolic 2022-04-03 13:00:00 132 mm[Hg] [facility] blood pressure diastolic 2022-04-03 13:00:00 76 mm[Hg] Common [facility] height 2021-12-31 14:40:00 60.25 [in_i] Com [facility] weight 2021-12-31 14:40:00 204.4 [lb_av] [facility] 2021-12-31 14:40:00 97.3 [degF] Com [facility] bmi 2021-12-31 14:40:00 39.58 kg/m2 Comm on [facility] oximetry 2021-12-31 14:40:00 96 % Commo n [facility] respiratory rate 2021-12-31 14:40:00 16 /min [facility] blood pressure systolic 2021-12-31 14:40:00 139 mm[Hg] Common [facility] blood pressure diastolic 2021-12-31 14:40:00 62 mm[Hg] [facility] height 2021-10-02 15:00:00 60.25 [in_i] Com [facility] weight 2021-10-02 15:00:00 203.4 [lb_av] Co on [facility] temperature 2021-10-02 15:00:00 97.5 [degF] Com [facility] bmi 2021-10-02 15:00:00 39.39 kg/m2 Comm on [facility] oximetry 2021-10-02 15:00:00 96 % Commo n [facility] respiratory rate 2021-10-02 15:00:00 18 /min Common [facility] blood pressure systolic 2021-10-02 15:00:00 136 mm[Hg] Common [facility] blood pressure diastolic 2021-10-02 15:00:00 74 mm[Hg] [facility] height 2021-07-03 14:40:00 60.25 [in_i] Com [facility] weight 2021-07-03 14:40:00 200 [lb_av] Comm on [facility] temperature 2021-07-03 14:40:00 98.2 [degF] Com [facility] bmi 2021-07-03 14:40:00 38.73 kg/m2 Comm on [facility] oximetry 2021-07-03 14:40:00 97 % Commo n [facility] respiratory rate 2021-07-03 14:40:00 16 /min Common [facility] blood pressure systolic 2021-07-03 14:40:00 126 mm[Hg] Common [facility] blood pressure diastolic 2021-07-03 14:40:00 64 mm[Hg] [facility] height 2021-04-03 09:00:00 60.25 [in_i] Com [facility] weight 2021-04-03 09:00:00 199.6 [lb_av] Co mmon [facility] temperature 2021-04-03 09:00:00 97.0 [degF] Com [facility] bmi 2021-04-03 09:00:00 38.65 kg/m2 Comm on [facility] oximetry 2021-04-03 09:00:00 95 % Commo n [facility] blood pressure systolic 2021-04-03 09:00:00 134 mm[Hg] Common [facility] blood pressure diastolic 2021-04-03 09:00:00 66 mm[Hg] [facility] height 2021-04-03 08:40:00 60.25 [in_i] Com [facility] weight 2021-04-03 08:40:00 199.6 [lb_av] Co mmon [facility] temperature 2021-04-03 08:40:00 97.0 [degF] Com [facility] bmi 2021-04-03 08:40:00 38.65 kg/m2 Comm on [facility] oximetry 2021-04-03 08:40:00 95 % Commo n [facility] respiratory rate 2021-04-03 08:40:00 16 /min [facility] blood pressure systolic 2021-04-03 08:40:00 134 mm[Hg] [facility] blood pressure diastolic 2021-04-03 08:40:00 66 mm[Hg] [facility] Encounters Start Date/Time End Date/Time Encounter Type Admission Type Attending [facility] Facility Care Department Encounter ID Source 2023-01-20 14:44:00 Outpatient Yaz Barrera STLMLC ST[facility] [id number] [facility] 2022-04-01 14:02:00 Outpatient Yaz Barrera STLMLC ST[facility] [id number] [facility] 2021-07-03 15:24:01 Outpatient Yaz Barrera STLMLC ST[facility]C [id number] [facility] 2021-07-01 11:44:01 Outpatient Yaz Barrera STLMLC STLMLC [id number] [facility] 2021-04-24 14:32:03 Outpatient Yaz Barrera STLMLC STLMLC [id number] [facility] 2021-04-24 14:31:15 Outpatient Yaz Barrera STLMLC STLMLC [id number] [facility] 2021-04-24 13:19:18 Outpatient Yaz Barrera STLMLC STLMLC [id number] [facility] 2021-04-24 12:47:25 Outpatient Yaz Barrera STLMLC STLMLC [id number] [facility] 2021-04-24 12:21:45 Outpatient Yaz Barrera STLMLC STL[facility]C [id number] [facility] 2021-04-24 12:15:04 Outpatient Yaz Barrera STLMLC STLMLC [id number] [facility] 2021-04-24 12:08:53 Outpatient Miguel A Alston STMIKEYLC STLMLC [id number] [facility] 2021-04-24 11:25:26 Outpatient Sofy Schwartz STODESSA STLMLC [id number] [facility] 2021-04-24 11:24:53 Outpatient Sofy Schwartz STODESSA STLMLC [id number] [facility] 2021-04-24 11:06:43 Outpatient Sofy Schwartz STLMLC STLMLC [id number] [facility] 2021-04-24 11:01:49 Outpatient Sofy Schwartz STMIKEYLC STLMLC [id number] [facility] 2021-04-24 11:00:30 Outpatient Sofy Schwartz STLMLC STLMLC [id number] [facility] 2023-05-21 00:00:00 2023-05-21 00:00:00 (TEL) STLMLC STLMLC [id number] [facility] 2023-05-12 00:00:00 2023-05-12 00:00:00 (TEL) STLMLC STLMLC [id number] [facility] 2023-04-22 00:00:00 2023-04-22 00:00:00 OFFICE VISIT ESTAB PT LEVEL 4 STLMLC STLMLC [id number] [facility] 2023-04-15 00:00:00 2023-04-15 00:00:00 (TEL) STLMLC STLMLC [id number] [facility] 2023-01-24 00:00:00 2023-01-24 00:00:00 Outpatient GC_GCBZW_Ka diyala_S PRIV PRIV [id number] [facility] 2023-01-24 00:00:00 2023-01-24 00:00:00 Outpatient GC_GCBZW_Ka diyala_S PRIV PRIV [id number] [facility] 2023-01-20 00:00:00 2023-01-20 00:00:00 OFFICE VISIT ESTAB PT LEVEL 4 STLMLC STLMLC [id number] [facility] 2022-11-18 00:00:00 2022-11-18 00:00:00 (TEL) STLMLC STLMLC [id number] [facility] 2022-10-21 00:00:00 2022-10-21 00:00:00 OFFICE VISIT ESTAB PT LEVEL 4 STLMLC STLMLC [id number] [facility] 2022-08-01 00:00:00 2022-08-01 00:00:00 (TEL) STLMLC STLMLC [id number] [facility] 2022-07-21 00:00:00 2022-07-21 00:00:00 SUB ANNUAL [facility] WELLNESS VISIT STLMLC STLMLC [id number] [facility] 2022-07-21 00:00:00 2022-07-21 00:00:00 OFFICE VISIT ESTAB PT LEVEL 3 STLMLC STLMLC [id number] [facility] 2022-06-05 00:00:00 2022-06-05 00:00:00 (TEL) STLMLC STLMLC [id number] [facility] 2022-04-03 00:00:00 2022-04-03 00:00:00 OFFICE VISIT EST PT LEVEL 3 STLMLC STLMLC [id number] [facility] 2021-12-31 00:00:00 2021-12-31 00:00:00 OFFICE VISIT EST PT LEVEL 3 STLMLC STLMLC [id number] [facility] 2021-10-02 00:00:00 2021-10-02 00:00:00 OFFICE VISIT EST PT LEVEL 3 STLMLC STLMLC [id number] [facility] 2021-07-03 00:00:00 2021-07-03 00:00:00 OFFICE VISIT EST PT LEVEL 3 STLMLC STLMLC [id number] [facility] 2021-04-03 00:00:00 2021-04-03 00:00:00 SUB ANNUAL MCR WELLNESS VISIT STLMLC STLMLC [id number] [facility] 2021-04-03 00:00:00 2021-04-03 00:00:00 OFFICE VISIT ESTAB PT LEVEL 3 STLMLC STLMLC [id number] [facility] 2021-01-04 00:00:00 2021-01-04 00:00:00 (TEL) STLMLC STLMLC [id number] [facility] 2020-09-25 00:00:00 2020-09-25 00:00:00 Outpatient STLMLC STLMLC [id number] [facility] 2020-09-12 00:00:00 2020-09-12 00:00:00 Outpatient STLMLC STLMLC [id number] [facility] 2020-08-30 00:00:00 2020-08-30 00:00:00 Outpatient STLMLC STLMLC [id number] [facility] 2020-06-27 00:00:00 2020-06-27 00:00:00 Outpatient STLMLC STLMLC [id number] [facility] 2020-04-17 00:00:00 2020-04-17 00:00:00 Outpatient STLMLC STLMLC [id number] [facility] 2019-10-20 11:40:00 2019-10-20 11:40:00 Outpatient ROSANNE KHAN [facility] [id number] [facility] 2019-10-20 10:48:16 2019-10-20 10:57:29 Laboratory Only Lab, Ad[facility] One [id number] [facility] 2019-10-20 10:48:16 2019-10-20 10:57:29 Laboratory Only Lab, Adc Fam Pob [facility] One [id number] 2019-09-26 08:51:00 2019-09-26 08:51:00 [facility] [id number] [facility] 2019-09-02 15:00:00 2019-09-02 15:00:00 Outpatient [facility] Medicine [id number] [facility] 2019-08-31 14:01:00 2019-08-31 14:01:00 [facility] [id number] [facility] 2019-08-23 09:00:00 2019-08-23 09:00:00 Outpatient [facility] [id number] [facility] 2019-06-02 15:00:00 2019-06-02 15:00:00 Outpatient [facility] [id number] [facility] 2019-05-09 15:46:00 2019-05-09 15:46:00 [facility] [id number] [facility] 2019-05-04 14:45:00 2019-05-04 14:45:00 [facility] [id number] [facility] 2019-04-19 21:34:00 2019-04-19 21:34:00 [facility] [id number] [facility] 2019-04-19 21:21:00 2019-04-19 21:21:00 [facility] [id number] [facility] 2019-04-19 09:30:00 2019-04-19 09:30:00 [facility] [id number] [facility] 2019-02-15 08:00:00 2019-02-15 08:00:00 [facility] [id number] [facility] 2019-02-10 13:48:00 2019-02-10 13:48:00 [facility] [id number] [facility] 2019-02-04 12:23:00 2019-02-04 12:23:00 [facility] [id number] [facility] 2019-02-02 14:40:00 2019-02-02 14:40:[address] [facility] [id number] [facility] 2019-01-27 14:30:00 2019-01-27 14:30:00 [facility] [id number] [facility] 2019-01-12 09:00:00 2019-01-12 09:00:00 [facility] [id number] [facility]
[2023-08-04 11:30] LABS: Absolute Basophils 0.1 K/uL (0-0.5); Absolute Eosinophils 0.2 K/uL (0-0.5); Absolute Lymphocytes (CBC) 1.8 K/uL (0.7-4.9); Absolute Monocytes 0.7 K/uL (0.1-1.3); Absolute Neutrophil 4.4 K/uL (1.8-8.0); Basophils % 0.9 % (0-1.3); Eosinophils % 3.1 % (0-4.4); Hematocrit 41.5 % (36.0-45.0); Hemoglobin 13.9 g/dL (12.0-15.0); Lymphocytes % 24.9 % (15.3-44.8); MCH 30.3 pg (27.0-35.0); MCHC 33.6 g/dL (32.0-36.0); MCV 90.2 fL (80-100); MPV 8.6 fL (7.6-11.3); Monocytes % 9.8 % (3.3-12.3); Neutrophils % 61.3 % (41.7-73.7); Platelets 268 thou/uL (152-406); Red Cell Distribution Width 14.1 % (12.1-15.2)
--- NOTE | 2023-08-04 11:30 | RAD REPORT ---
EXAM DESCRIPTION: RAD - Chest Single View - 08/04/2023 11:23 am CLINICAL HISTORY: HTN Chest pain. COMPARISON: Chest Single View dated 10/03/2017; CHEST PA AND LAT 2 VIEW dated 06/29/2007 FINDINGS: Portable technique limits examination quality. The lungs are grossly clear. The heart is normal in size. No displaced fractures. IMPRESSION: No acute intrathoracic process suspected.
[2023-08-04 11:48] LABS: Anion Gap 5.9 mEq/L (5.0-15.0); Potassium 3.9 mEq/L (3.5-5.1); Troponin High Sensitivity 5.8 pg/mL (<58.9)
--- NOTE | 2023-08-04 11:53 | EDPHYS ---
Physician Documentation [facility] Name: Cassy Stafford Age: 78 yrs Sex: Female : 1945 Arrival Date: 08/04/2023 Time: 10:43 Bed 6 Private MD: ED Physician Shankar Esteban HPI: 08/03 11:39 This 78 yrs old Female presents to ER via Ambulatory with complaints of High rn Blood Pressure. 11:39 The patient has elevated blood pressure and discovered this at home. Onset: The rn symptoms/episode began/occurred at an unknown time. Modifying factors:. Associated signs and symptoms: The patient has no apparent associated signs or symptoms, Pertinent negatives: chest pain, dizziness, dyspnea, headache, lightheadedness, vomiting, weakness. Severity of symptoms: At its worst the blood pressure was moderate, in the emergency department the blood pressure is improved. The patient has experienced similar episodes in the past. Patient reports history of high blood pressure, noted high blood pressure at home today. Otherwise feels normal. Denies chest pain or headache. No focal weakness or numbness. No vision changes. Seen here a month or 2 ago for same problem, followed up with PCP who increased her blood pressure medication. Took her medication this morning but blood pressure was not coming down so came in for evaluation.. Historical: - Allergies: 10:50 No Known Allergies; as6 - PMHx: 10:50 breast cancer; Diabetes - NIDDM; Hyperlipidemia; Hypertension; as6 - PSHx: 10:50 Total abdominal hysterectomy; as6 - Immunization history:: Adult Immunizations up to date. - Infectious Disease History:: Denies. - Social history:: Smoking status: Patient denies any tobacco usage or history of. - Family history:: not pertinent. - Hospitalizations: : No recent hospitalization is reported. ROS: 11:39 Constitutional: Negative for fever, chills, and weight loss, Neck: Negative for injury, rn pain, and swelling, Cardiovascular: Negative for chest pain, palpitations, and edema, Respiratory: Negative for shortness of breath, cough, wheezing, and pleuritic chest pain, Abdomen/GI: Negative for abdominal pain, nausea, vomiting, diarrhea, and constipation, Back: Negative for injury and pain, MS/Extremity: Negative for injury and deformity, Skin: Negative for injury, rash, and discoloration, Neuro: Negative for headache, weakness, numbness, tingling, and seizure, Exam: 11:39 Constitutional: This is a well developed, well nourished patient who is awake, alert, rn and in no acute distress. Head/Face: Normocephalic, atraumatic. Eyes: Pupils equal round and reactive to light, extra-ocular motions intact. Lids and lashes normal. Conjunctiva and sclera are non-icteric and not injected. Cornea within normal limits. Periorbital areas with no swelling, redness, or edema. Cardiovascular: Regular rate and rhythm. No pulse deficits. Respiratory: No increased work of breathing, no retractions or nasal flaring. Abdomen/GI: Soft, non-tender Neuro: Awake and alert, GCS 15, oriented to person, place, time, and situation. Cranial nerves II-XII grossly intact. Motor strength 5/5 in all extremities. Sensory grossly intact. Cerebellar exam normal. Normal gait. 15:08 ECG was reviewed by the Attending Physician. rn Vital Signs: 10:47 BP 204 / 63; Pulse 62; Resp 16 S; Temp 97.3(TE); Pulse Ox 98% on R/A; Weight 90.72 kg as6 (R); Height 5 ft. 0 in. (R); Pain 0/10; 11:51 BP 164 / 71; rn 12:00 BP 161 / 75; Pulse 66; Resp 18; Pulse Ox 99% on R/A; rs5 10:47 Body Mass Index 39.06 (90.72 kg, 152.4 cm) as6 10:47 Pain Scale: Adult as6 MDM: 10:46 Patient medically screened. rn 11:51 Differential diagnosis: hypertensive crisis, Malignant HTN. Differential diagnosis: rn Asymptomatic hypertension. Data reviewed: vital signs, nurses notes. Care significantly affected by the following chronic conditions: Diabetes, Hypertension. Counseling: I had a detailed discussion with the patient and/or guardian regarding the historical points, exam findings, and any diagnostic results supporting the discharge/admit diagnosis, the presence of at least one elevated blood pressure reading (>120/80) during this emergency department visit, lab results, radiology results, the need for outpatient follow up, to return to the emergency department if symptoms worsen or persist or if there are any questions or concerns that arise at home. Response to treatment: the patient's symptoms have markedly improved after treatment, and as a result, I will discharge patient. Special discussion: I have referred the patient to see his PCP for further evaluation of high blood pressure. I discussed with the patient/guardian in detail that at this point there is no indication for admission to the hospital. It is understood, however, that if the symptoms persist or worsen the patient needs to return immediately for re-evaluation. ED course: No evidence of endorgan damage. No medication required here as patient took prior to arrival and blood pressure has decreased. Recommend follow-up with PCP for further blood pressure management, I feel like she is going to need addition of a third agent. I have personally reviewed all of the results, including but not limited to blood tests and imaging deemed necessary to safely discharge this patient at this time. All results given to and printed out for patient. I personally went over all the results with the patient and answered all questions. Patient will follow-up with PCP and or specialist as discussed. Return precautions given and understood.. 08/03 10:49 Order name: Basic Metabolic Panel; Complete Time: 08/03 10:49 Order name: CBC with Diff; Complete Time: 08/03 10:49 Order name: NT PRO-BNP; Complete Time: 08/03 10:49 Order name: Troponin HS; Complete Time: 08/03 10:49 Order name: XRAY Chest (1 view); Complete Time: 08/03 10:49 Order name: Cardiac monitoring; Complete Time: 08/03 10:49 Order name: EKG - Nurse/Tech; Complete Time: 08/03 10:49 Order name: IV Saline Lock; Complete Time: 08/03 10:49 Order name: Labs collected and sent; Complete Time: 08/03 10:49 Order name: O2 Per Protocol; Complete Time: 08/03 10:49 Order name: O2 Sat Monitoring; Complete Time: rn EC:08 Rate is 59 beats/min. Rhythm is regular. QRS [place] is Normal. SC interval is normal. QRS rn interval is normal. QT interval is normal. No Q waves. T waves are Normal. No ST changes noted. Clinical impression: Sinus bradycardia. Interpreted by me. Reviewed by me. Administered Medications: No medications were administered Disposition Summary: 08/04/23 11:52 Discharge Ordered Notes: Location: Home rn Problem: chronic rn Symptoms: have improved rn Condition: Stable rn Diagnosis - Essential (primary) hypertension rn Followup: rn - With: Private Physician - When: As needed - Reason: Recheck today's complaints, Re-evaluation by your physician Discharge Instructions: - Discharge Summary Sheet rn - Hypertension, Adult rn - How to Take Your Blood Pressure, [id number] rn - Managing Your Hypertension rn Forms: - Medication Reconciliation Form rn - Antibiotic morning caregiver - Prescription Opioid Use rn - Patient Portal Instructions rn - Leadership Thank You Letter rn Signatures: Dispatcher [employer] EDMS Shankar Esteban MD MD rn Slawson, Ashby, RN RN as6 Corrections: (The following items were deleted from the chart) 10:50 10:50 Chest Single View+[email or web address] ordered. EDMD EDMS
--- NOTE | 2023-08-04 11:53 | ER ---
Nurse's Notes [facility] Name: Cassy Stafford Age: 78 yrs Sex: Female : 1945 Arrival Date: 08/04/2023 Time: 10:43 Bed 6 Private MD: Diagnosis: Essential (primary) hypertension Presentation: 08/03 10:47 Chief complaint: Patient states: high blood pressure. Coronavirus screen: At this time, as6 the client does not indicate any symptoms associated with coronavirus-19. Ebola Screen: No symptoms or risks identified at this time. Initial Sepsis Screen: Does the patient meet any 2 criteria? No. Patient's initial sepsis screen is negative. Does the patient have a suspected source of infection? No. Patient's initial sepsis screen is negative. Risk Assessment: Do you want to hurt yourself or someone else? Patient reports no desire to harm self or others. Onset of symptoms was August 04, 2023. 10:47 Method Of Arrival: Ambulatory as6 10:47 Acuity: ONEIL 3 as6 Historical: - Allergies: 10:50 No Known Allergies; as6 - PMHx: 10:50 breast cancer; Diabetes - NIDDM; Hyperlipidemia; Hypertension; as6 - PSHx: 10:50 Total abdominal hysterectomy; as6 - Immunization history:: Adult Immunizations up to date. - Infectious Disease History:: Denies. - Social history:: Smoking status: Patient denies any tobacco usage or history of. - Family history:: not pertinent. - Hospitalizations: : No recent hospitalization is reported. Screenin:52 [facility] ED Fall Risk Assessment (Adult) History of falling in the last 3 months, rs5 including since admission No falls in past 3 months (0 pts) Confusion or Disorientation No (0 pts) Intoxicated or Sedated No (0 pts) Impaired Gait No (0 pts) Mobility Assist Device Used No (0 pt) Altered Elimination No (0 pt) Score/Fall Risk Level 0 - 2 = Low Risk Oriented to surroundings, Maintained a safe environment. Abuse screen: Denies threats or abuse. Nutritional screening: No deficits noted. Tuberculosis screening: No symptoms or risk factors identified. Assessment: 10:52 General: Appears in no apparent distress. comfortable, Behavior is calm, cooperative. rs5 Pain: Denies pain. Neuro: Level of Consciousness is awake, alert, obeys commands, Oriented to person, place, time, situation. Cardiovascular: Patient's skin is warm and dry. Rhythm is regular. Respiratory: Airway is patent Respiratory effort is even, unlabored, Respiratory pattern is regular, symmetrical. GI: Abdomen is round non-distended, Abd is soft and non tender X 4 quads. : No signs and/or symptoms were reported regarding the genitourinary system. EENT: No signs and/or symptoms were reported regarding the EENT system. Derm: Skin is intact, Skin is dry, Skin is normal, Skin temperature is warm. Musculoskeletal: Range of motion: intact in all extremities. 12:00 Reassessment: No changes from previously documented assessment. rs5 Vital Signs: 10:47 BP 204 / 63; Pulse 62; Resp 16 S; Temp 97.3(TE); Pulse Ox 98% on R/A; Weight 90.72 kg as6 (R); Height 5 ft. 0 in. (R); Pain 0/10; 11:51 BP 164 / 71; rn 12:00 BP 161 / 75; Pulse 66; Resp 18; Pulse Ox 99% on R/A; rs5 10:47 Body Mass Index 39.06 (90.72 kg, 152.4 cm) as6 10:47 Pain Scale: Adult as6 ED Course: 10:45 Patient arrived in ED. ts1 10:46 Shankar Esteban MD is Attending Physician. rn 10:47 Arm band placed on left wrist. as6 10:50 Triage completed. as6 10:52 Patient has correct armband on for positive identification. Placed in gown. Bed in low rs5 position. Call light in reach. Side rails up X2. 10:52 No provider procedures requiring assistance completed. rs5 10:58 Jaime Tierney, EDGARD is Primary Nurse. rs5 10:58 Inserted saline lock: 20 gauge in right antecubital area, using aseptic technique. rs5 11:25 XRAY Chest (1 view) In Process Unspecified. EDMS 12:11 IV discontinued, intact, bleeding controlled, No redness/swelling at site. Pressure rs5 dressing applied. Administered Medications: No medications were administered Medication: 12:11 VIS not applicable for this client. rs5 Outcome: 11:52 Discharge ordered by . rn 12:11 Discharged to home ambulatory, rs5 12:11 Condition: stable 12:11 Discharge instructions given to patient, family, Instructed on discharge instructions, follow up and referral plans. Demonstrated understanding of instructions, follow-up care, 12:11 Patient left the ED. rs5 Signatures: Dispatcher [employer] EDShankar Phillips MD MD rn Slawson, Ashby, RN RN as6 Jaime Tierney RN RN rs5 Jennifer Carlson PAS PAS ts1
[2023-08-04 12:50] VITALS: BP 161/75; TEMP 97.3; O2SAT 99
--- NOTE | 2023-08-04 13:58 | EKG ---
Test Date: 2023-08-04 Test Time: 11:14:07 [place]: LILIANA MEASUREMENT RESULTS: Intervals: Rate: 59 RI: 168 QRSD: 72 QT: 398 QTc: 394 [place]: P: 51 RI: 168 QRS: 47 T: 74 INTERPRETIVE STATEMENTS: Sinus bradycardia with marked sinus arrhythmia Otherwise normal ECG Compared to ECG 06/20/2023 12:18:17 No significant changes Electronically Signed On 08-04-23 13:57:44 CDT by Otis Colin
== END 2023-08-04 12:11 | disposition home or self-care (01) ==
LOC: ER 10:43
DX: I10 Essential (primary) hypertension (principal)
CPT/HCPCS: 36415; 71045; 80048; 83880; 84484; 85025; 93005